=== PATIENT | male | born 1970 | race Caucasian/White ===

== ENCOUNTER 2016-09-08 17:07 | Inpatient (IN) | payer MEDICAID, OTHER ==
[~2016-09-08] VITALS: Ht 177.8 cm; Wt 66.7 kg
[~2016-09-08 17:07] MED LIST: ALBU8HFA4 IH; ARIP15TA3 PO; TRAZ150 PO
[2016-09-08] MEDS ORDERED: HALOPERIDOL 5 MG TABLET PO ONE (20:00)
[2016-09-08] MEDS ORDERED: DiphenhydrAMINE HCL 25 MG CAPSULE PO ONE (20:00)
[2016-09-08] MEDS ORDERED: LORazepam 2 MG TABLET PO ONE (20:00)
[2016-09-08] MEDS ORDERED: ZOLPIDEM TARTRATE 10 MG TABLET PO PRN (21:15)
[2016-09-08] MEDS ORDERED: HALOPERIDOL 5 MG TABLET PO PRN (21:15)
[2016-09-08 21:36] VITALS: BP 122/68
[2016-09-08 22:04] VITALS: BP 113/67
[2016-09-09 00:16] VITALS: BP 110/68
[2016-09-09] MEDS: NICOTINE 21 MG/24 HOUR PATCH TD SCH (10:20)
[2016-09-09] MEDS: LORazepam 2 MG TABLET PO PRN (10:20)
[2016-09-09] MEDS ORDERED: DiphenhydrAMINE HCL 50 MG/ML VIAL IM ONE (14:45)
[2016-09-09] MEDS ORDERED: HALOPERIDOL LACTATE 5 MG/ML VIAL IM ONE (14:45)
[2016-09-09] MEDS ORDERED: LORazepam 2 MG/ML VIAL IM ONE (14:45)
[2016-09-09 16:00] VITALS: BP_SYST 107; BP_SYST 159; BP_DIAS 58; BP_DIAS 86
[2016-09-09] MEDS ORDERED: ARIPiprazole 15 MG TABLET PO SCH (21:00)
[2016-09-09] MEDS ORDERED: TraZODone HCL 150 MG TABLET PO SCH (21:00)
[2016-09-10] MEDS: LORazepam 2 MG TABLET PO PRN ×2 (06:33→10:32)
[2016-09-10 06:51] VITALS: BP 117/72
[2016-09-10] MEDS: NICOTINE 21 MG/24 HOUR PATCH TD SCH (08:53)
== END 2016-09-10 13:45 | disposition home or self-care (01) | DRG 750 ==
LOC: EMS 17:09 → B2S 20:30 → B3A 09-09 15:00
PROVIDERS: ADMIT Psychiatry & Neurology Psychiatry; ATTEND Psychiatry & Neurology Psychiatry
DX: F25.9 Schizoaffective disorder, unspecified (principal); R45.851 Suicidal ideations; Z91.14 Patient's other noncompliance with medication regimen; I10 Essential (primary) hypertension; F31.9 Bipolar disorder, unspecified; F41.9 Anxiety disorder, unspecified; J45.909 Unspecified asthma, uncomplicated; K21.9 Gastro-esophageal reflux disease without esophagitis; G89.29 Other chronic pain; M54.9 Dorsalgia, unspecified; F17.210 Nicotine dependence, cigarettes, uncomplicated; F14.90 Cocaine use, unspecified, uncomplicated; Z79.899 Other long term (current) drug therapy; Z98.890 Other specified postprocedural states; Z71.6 Tobacco abuse counseling
CPT/HCPCS: 99285; J1200; J1630; J2060

== ENCOUNTER 2016-11-13 17:17 | Inpatient (IN) | payer MEDICAID, OTHER ==
[~2016-11-13] VITALS: Ht 167.6 cm; Wt 67.2 kg
[~2016-11-13 17:17] MED LIST changes: -ALBU8HFA4 IH
[2016-11-13] MEDS ORDERED: SODIUM CHLORIDE 0.9% 1,000 ML IV ONE ×3 (18:00→21:30)
[2016-11-13] MEDS ORDERED: PANTOPRAZOLE SODIUM 40 MG/VIAL IVP ONE (18:00)
[2016-11-13] MEDS ORDERED: HYDROmorphone 2 MG/ML SYRINGE IVP ONE (18:00)
[2016-11-13] MEDS ORDERED: ONDANSETRON HCL 4 MG/2 ML VIAL IVP ONE (18:00)
[2016-11-13 18:11] LABS: BASOPHILS % (AUTO) 0.1 % (0.0-2.0); EOSINOPHILS % (AUTO) 0.1 % (1.0-6.0); HEMATOCRIT 38.1 % (41-53); HEMOGLOBIN 12.7 g/dL (13.5-17.5); LYMPHOCYTES # (AUTO) 2.4 K/uL (1.0-4.8); LYMPHOCYTES % (AUTO) 10.8 % (22.0-44.0); MEAN CORPUSCULAR HEMOGLOBIN 30.5 pg (26.0-34.0); MEAN CORPUSCULAR HGB CONC 33.5 G/dL (31.0-37.0); MEAN CORPUSCULAR VOLUME 91 fL (80-100); MONOCYTES # (AUTO) 1.7 K/uL (0.1-1.0); MONOCYTES % (AUTO) 7.5 % (2.0-9.0); NEUTROPHILS % (AUTO) 81.5 % (40.0-70.0); PLATELET COUNT (AUTO) 225 K/uL (150-450); RED BLOOD CELL COUNT(AUTO) 4.18 MIL/uL (4.50-5.90); RED CELL DISTRIBUTION WIDTH 15.4 % (11.5-14.5); WHITE BLOOD COUNT (AUTO) 22.1 K/uL (4.5-11.0)
[2016-11-13 18:13] LABS: ADD UA MICROSCOPIC NO; APPEARANCE,URINE CLEAR (CLEAR); GLUCOSE, URINE (UA) NEGATIVE (NEGATIVE); KETONES,URINE NEGATIVE (NEGATIVE); LEUKOCYTE ESTERASE ,URINE NEGATIVE (NEGATIVE); OCCULT BLOOD,URINE NEGATIVE (NEGATIVE); PH,URINE 5.5 (5.0-8.0); PROTEIN,URINE NEGATIVE (NEGATIVE)
[2016-11-13 18:22] LABS: ANION GAP 9 mmol/L (8-16); CALCIUM, TOTAL 8.2 mg/dL (8.8-10.5); CARBON DIOXIDE 27 mmol/L (22-29); CHLORIDE 101 mmol/L (98-107); CREATININE 0.92 mg/dL (0.60-1.30); GLOMERULAR FILTR. RATE CALC > 60 mL/min (>60); POTASSIUM 3.7 mmol/L (3.5-5.1); SODIUM SERUM 137 mmol/L (136-145); UREA NITROGEN, BLOOD 13 mg/dL (7-18)
[2016-11-13 18:27] LABS: ALANINE AMINOTRANSFERASE 9 U/L (12-78); ALBUMIN 3.3 g/dL (3.4-5.0); ASPARTATE AMINOTRANSFERASE 9 U/L (15-37); BILIRUBIN,TOTAL 0.4 mg/dL (0.1-1.0); TOTAL PROTEIN, SERUM 7.2 g/dL (6.4-8.2)
[2016-11-13 18:38] LABS: RBC MORPHOLOGY COMMENT NORMAL RBC MORPH
[2016-11-13] MEDS ORDERED: ALBUTEROL SULFATE 5 MG/ML 20 ML NEB SOLN [BULK] NEB ONE ×2 (19:45→21:15)
[2016-11-13] MEDS ORDERED: IPRATROPIUM BROMIDE 0.5 MG/2.5 ML NEB SOLUTION NEB ONE ×2 (19:45→21:00)
[2016-11-13] MEDS ORDERED: ONDANSETRON HCL 4 MG/2 ML VIAL IVP PRN (20:30)
[2016-11-13] MEDS ORDERED: ACETAMINOPHEN 325 MG TABLET PO PRN ×2 (20:30→21:30)
[2016-11-13] MEDS ORDERED: AZITHROMYCIN 500 MG/NS 250 ML IV ONE (20:30)
[2016-11-13] MEDS ORDERED: 0.9% SODIUM CHLORIDE 10 ML SYRINGE IVP PRN (20:30)
[2016-11-13] MEDS ORDERED: CefTRIAXone 1 GM/DEXTROSE 50 ML IV ONE (20:30)
[2016-11-13] MEDS ORDERED: ALBUTEROL SULFATE 2.5 MG/0.5 ML NEB SOLUTION NEB ONE (21:00)
[2016-11-13] MEDS ORDERED: MAGNESIUM HYDROXIDE SUSPENSION 30 ML UDCUP PO PRN (21:30)
[2016-11-13] MEDS ORDERED: ALBUTEROL SULFATE 2.5 MG/0.5 ML NEB SOLUTION NEB PRN (21:30)
[2016-11-13] MEDS ORDERED: ZOLPIDEM TARTRATE 5 MG TABLET PO PRN (21:30)
[2016-11-13] MEDS ORDERED: GuaiFENesin/CODEINE [SUGAR FREE] 200-20MG/10 ML SYRUP UDCUP PO PRN (21:45)
[2016-11-13] MEDS ORDERED: ARIPiprazole 15 MG TABLET PO SCH (22:00)
[2016-11-13 22:43] VITALS: BP 97/46
[2016-11-14 00:30] VITALS: BP 82/38
[2016-11-14 06:57] VITALS: BP 99/41
[2016-11-14 07:20] LABS: BASOPHILS % (AUTO) 0.3 % (0.0-2.0); EOSINOPHILS % (AUTO) 0.1 % (1.0-6.0); HEMATOCRIT 35.9 % (41-53); HEMOGLOBIN 12.1 g/dL (13.5-17.5); LYMPHOCYTES # (AUTO) 2.6 K/uL (1.0-4.8); LYMPHOCYTES % (AUTO) 12.9 % (22.0-44.0); MEAN CORPUSCULAR HEMOGLOBIN 30.7 pg (26.0-34.0); MEAN CORPUSCULAR HGB CONC 33.7 G/dL (31.0-37.0); MEAN CORPUSCULAR VOLUME 91 fL (80-100); MONOCYTES # (AUTO) 1.5 K/uL (0.1-1.0); MONOCYTES % (AUTO) 7.6 % (2.0-9.0); NEUTROPHILS # (AUTO) 15.8 K/uL (1.8-7.7); NEUTROPHILS % (AUTO) 79.1 % (40.0-70.0); PLATELET COUNT (AUTO) 185 K/uL (150-450); RED BLOOD CELL COUNT(AUTO) 3.95 MIL/uL (4.50-5.90)
[2016-11-14 07:38] VITALS: BP 94/55
[2016-11-14] MEDS ORDERED: DOCUSATE SODIUM 100 MG CAPSULE PO SCH (09:00)
[2016-11-14] MEDS ORDERED: PANTOPRAZOLE SODIUM 40 MG DR TABLET PO SCH (09:00)
[2016-11-14 11:06] VITALS: BP 118/59
[2016-11-14] MEDS ORDERED: CefTRIAXone 1 GM/DEXTROSE 50 ML IV SCH (20:00)
[2016-11-14] MEDS ORDERED: AZITHROMYCIN 500 MG/NS 250 ML IV SCH (21:00)
== END 2016-11-14 13:23 | disposition left against medical advice (07) | DRG 140 ==
LOC: EMS 17:19 → 6N 20:46
PROVIDERS: ADMIT Internal Medicine; ATTEND Internal Medicine
DX: J44.0 Chronic obstructive pulmonary disease with (acute) lower respiratory infection (principal); J18.9 Pneumonia, unspecified organism; I10 Essential (primary) hypertension; F29 Unspecified psychosis not due to a substance or known physiological condition; G89.29 Other chronic pain; M54.9 Dorsalgia, unspecified; F41.9 Anxiety disorder, unspecified; J45.909 Unspecified asthma, uncomplicated; F12.90 Cannabis use, unspecified, uncomplicated; F17.210 Nicotine dependence, cigarettes, uncomplicated; F19.10 Other psychoactive substance abuse, uncomplicated; F20.9 Schizophrenia, unspecified; F31.9 Bipolar disorder, unspecified; F60.9 Personality disorder, unspecified; K21.9 Gastro-esophageal reflux disease without esophagitis; Z82.49 Family history of ischemic heart disease and other diseases of the circulatory system; Z91.19 Patient's noncompliance with other medical treatment and regimen; Z71.6 Tobacco abuse counseling; J44.1 Chronic obstructive pulmonary disease with (acute) exacerbation
CPT/HCPCS: 74176; 87040; 87389; 93005; 94644; 96361; 96365; 96368; 96375; 99285; 99406; C9113; G0480; J0456; J0696; J1170; J2405; J7030

== ENCOUNTER 2018-05-17 04:06 | Emergency (ER) | payer OTHER ==
[~2018-05-17] VITALS: Ht 177.8 cm; Wt 63.6 kg
[~2018-05-17 04:06] MED LIST changes: +ARIP15TA2 PO; -ARIP15TA3 PO
[2018-05-17 04:18] VITALS: BP 164/70
[2018-05-17] MEDS: LIDOCAINE 1%/EPI 1:100,000 30 ML VIAL INJ ONE (05:03)
== END 2018-05-17 06:25 | disposition home or self-care (01) ==
LOC: EMS 04:07
DX: S01.81XA Laceration without foreign body of other part of head, initial encounter (principal); J45.909 Unspecified asthma, uncomplicated; F41.9 Anxiety disorder, unspecified; F31.9 Bipolar disorder, unspecified; K21.9 Gastro-esophageal reflux disease without esophagitis; I10 Essential (primary) hypertension; F20.9 Schizophrenia, unspecified; G89.29 Other chronic pain; F17.210 Nicotine dependence, cigarettes, uncomplicated; F14.90 Cocaine use, unspecified, uncomplicated; Y04.2XXA Assault by strike against or bumped into by another person, initial encounter; Y93.89 Activity, other specified; Y92.89 Other specified places as the place of occurrence of the external cause; Y99.8 Other external cause status
CPT/HCPCS: 12014; 70450; 99284; J3490

== ENCOUNTER 2018-07-05 13:30 | Inpatient (IN) | payer MEDICAID, OTHER ==
[~2018-07-05] VITALS: Ht 177.8 cm; Wt 64.7 kg
[~2018-07-05 13:30] MED LIST changes: +FLUP10 PO; +TRIH2TAB3 PO
[2018-07-05 14:47] LABS: BASOPHILS % (AUTO) 0.6 % (0.0-2.0); EOSINOPHILS % (AUTO) 0.4 % (1.0-6.0); HEMATOCRIT 38.2 % (41-53); HEMOGLOBIN 12.4 g/dL (13.5-17.5); LYMPHOCYTES % (AUTO) 16.1 % (22.0-44.0); MEAN CORPUSCULAR HEMOGLOBIN 28.9 pg (26.0-34.0); MEAN CORPUSCULAR HGB CONC 32.4 G/dL (31.0-37.0); MEAN CORPUSCULAR VOLUME 89 fL (80-100); MONOCYTES # (AUTO) 1.1 K/uL (0.1-1.0); MONOCYTES % (AUTO) 8.7 % (2.0-9.0); NEUTROPHILS # (AUTO) 9.4 K/uL (1.8-7.7); NEUTROPHILS % (AUTO) 74.2 % (40.0-70.0); PLATELET COUNT (AUTO) 253 K/uL (150-450); RED BLOOD CELL COUNT(AUTO) 4.29 MIL/uL (4.50-5.90)
[2018-07-05 14:56] LABS: ANION GAP 7 mmol/L (8-16); CALCIUM, TOTAL 8.4 mg/dL (8.8-10.5); CARBON DIOXIDE 32 mmol/L (22-29); CHLORIDE 102 mmol/L (98-107); CREATININE 0.78 mg/dL (0.60-1.30); GLOMERULAR FILTR. RATE CALC > 60 mL/min (>60); GLUCOSE,RANDOM 82 mg/dL (70-110); POTASSIUM 4.1 mmol/L (3.5-5.1); SODIUM SERUM 141 mmol/L (136-145); UREA NITROGEN, BLOOD 12 mg/dL (7-18)
[2018-07-05 15:05] LABS: ALANINE AMINOTRANSFERASE 15 U/L (12-78); ALBUMIN 3.1 g/dL (3.4-5.0); ALKALINE PHOSPHATASE 73 U/L (46-116); ASPARTATE AMINOTRANSFERASE 16 U/L (15-37); BILIRUBIN,TOTAL 0.2 mg/dL (0.1-1.0); TOTAL PROTEIN, SERUM 7.2 g/dL (6.4-8.2)
[2018-07-05] MEDS ORDERED: ZOLPIDEM TARTRATE 10 MG TABLET PO PRN (15:30)
[2018-07-05 15:41] LABS: AMPHET/METH SCREEN,URINE NEGATIVE (NEGATIVE); BARBITURATE SCREEN, URINE NEGATIVE (NEGATIVE); BENZODIAZEPINES SCREEN,URINE NEGATIVE (NEGATIVE); CANNABINOID SCREEN,URINE NEGATIVE (NEGATIVE); COCAINE SCREEN,URINE NEGATIVE (NEGATIVE); METHADONE SCREEN, URINE NEGATIVE (NEGATIVE); OPIATE SCREEN,URINE NEGATIVE (NEGATIVE)
[2018-07-05 15:44] LABS: PHENCYCLIDINE SCREEN,URINE NEGATIVE (NEGATIVE)
[2018-07-05 18:33] VITALS: BP 111/61
[2018-07-05 18:50] VITALS: BP 111/61
[2018-07-05] MEDS ORDERED: GuaiFENesin/D-METHORPHAN [SUGAR-FREE] 200-20MG/10 ML SYRUP UDCUP PO PRN (19:15)
[2018-07-05] MEDS ORDERED: DOCUSATE SODIUM 100 MG CAPSULE PO PRN (19:15)
[2018-07-05] MEDS ORDERED: MAG HYDROX/AL HYDROX/SIMETH ES 30 ML SUSPENSION UDCUP PO PRN (19:15)
[2018-07-05] MEDS ORDERED: MAGNESIUM HYDROXIDE SUSPENSION 30 ML UDCUP PO PRN (19:15)
[2018-07-05] MEDS ORDERED: PETROLATUM,WHITE 71 GM JELLY TP PRN (19:15)
[2018-07-05] MEDS ORDERED: ALBUTEROL SULFATE HFA 90 MCG/PUFF 8 GM INHALER IH PRN (19:15)
[2018-07-05] MEDS ORDERED: LOPERAMIDE HCL 2 MG CAPSULE PO PRN (19:15)
[2018-07-05] MEDS ORDERED: ONDANSETRON HCL 4 MG TABLET PO PRN (19:15)
[2018-07-05] MEDS ORDERED: CloNIDine HCL 0.1 MG TABLET PO PRN (19:15)
[2018-07-05] MEDS ORDERED: NICOTINE 14 MG/24 HOUR PATCH TD PRN (19:15)
[2018-07-05] MEDS ORDERED: IBUPROFEN 400 MG TABLET PO PRN (19:15)
[2018-07-05] MEDS ORDERED: ACETAMINOPHEN 325 MG TABLET PO PRN (19:15)
[2018-07-06 09:00] VITALS: BP 125/77
[2018-07-06] MEDS: LORazepam 2 MG TABLET PO PRN ×2 (09:14→14:08)
[2018-07-06] MEDS: HALOPERIDOL 5 MG TABLET PO PRN ×2 (09:14→14:14)
[2018-07-06] MEDS: ARIPiprazole 15 MG TABLET PO SCH (16:23)
[2018-07-06] MEDS: TRIHEXYPHENIDYL HCL 2 MG TABLET PO SCH (16:23)
[2018-07-06] MEDS: FluPHENAZine HCL 5 MG TABLET PO SCH (16:23)
[2018-07-06 19:20] VITALS: BP 117/73
[2018-07-06] MEDS ORDERED: TraZODone HCL 150 MG TABLET PO SCH (21:00)
[2018-07-07 07:19] LABS: CHOL/HDL RATIO 2.6 (4.2-7.3); FREE T4 (FREE THYROXINE) 0.7 ng/dL (0.76-1.46); THYROID STIMULATING HORMONE 1.79 uIU/mL (0.36-3.74)
[2018-07-07 08:05] VITALS: BP 130/86
[2018-07-07] MEDS: TRIHEXYPHENIDYL HCL 2 MG TABLET PO SCH ×2 (09:19→16:17)
[2018-07-07] MEDS: ARIPiprazole 15 MG TABLET PO SCH ×2 (09:19→16:17)
[2018-07-07] MEDS: FluPHENAZine HCL 5 MG TABLET PO SCH ×2 (09:20→16:17)
[2018-07-07] MEDS: LORazepam 2 MG TABLET PO PRN (09:20)
[2018-07-07] MEDS ORDERED: ARIP15TA2 PO (16:02)
[2018-07-07] MEDS ORDERED: TRIH2TAB3 PO (16:02)
[2018-07-07] MEDS ORDERED: TRAZ150 PO (16:03)
== END 2018-07-07 17:45 | disposition home or self-care (01) | DRG 750 ==
LOC: EMS 13:33 → 3EI 18:13
PROVIDERS: ADMIT Psychiatry & Neurology Child & Adolescent Psychiatry; ATTEND Psychiatry & Neurology Child & Adolescent Psychiatry
DX: F20.0 Paranoid schizophrenia (principal); F15.20 Other stimulant dependence, uncomplicated; F14.90 Cocaine use, unspecified, uncomplicated; F17.200 Nicotine dependence, unspecified, uncomplicated; D64.9 Anemia, unspecified; D72.829 Elevated white blood cell count, unspecified; G89.29 Other chronic pain; I10 Essential (primary) hypertension; J44.9 Chronic obstructive pulmonary disease, unspecified; K21.9 Gastro-esophageal reflux disease without esophagitis; F41.9 Anxiety disorder, unspecified; M54.9 Dorsalgia, unspecified; F19.10 Other psychoactive substance abuse, uncomplicated; Z71.89 Other specified counseling; Z71.6 Tobacco abuse counseling
CPT/HCPCS: 83036; 84439; 84443; G0480

== ENCOUNTER 2019-01-12 11:54 | Inpatient (IN) | payer MEDICAID, OTHER ==
[~2019-01-12] VITALS: Ht 177.8 cm; Wt 63.4 kg
[2019-01-12] MEDS ORDERED: FluPHENAZine HCL 5 MG TABLET PO ONE (13:30)
[2019-01-12] MEDS ORDERED: LORazepam 2 MG TABLET PO ONE (13:30)
[2019-01-12 13:43] LABS: AMPHET/METH SCREEN,URINE POSITIVE (NEGATIVE); BARBITURATE SCREEN, URINE NEGATIVE (NEGATIVE); BENZODIAZEPINES SCREEN,URINE NEGATIVE (NEGATIVE); CANNABINOID SCREEN,URINE NEGATIVE (NEGATIVE); COCAINE SCREEN,URINE NEGATIVE (NEGATIVE); METHADONE SCREEN, URINE NEGATIVE (NEGATIVE); OPIATE SCREEN,URINE NEGATIVE (NEGATIVE); PHENCYCLIDINE SCREEN,URINE NEGATIVE (NEGATIVE)
[2019-01-12 13:54] LABS: BASOPHILS % (AUTO) 0.4 % (0.0-2.0); EOSINOPHILS % (AUTO) 0.4 % (1.0-6.0); HEMATOCRIT 39.8 % (41-53); HEMOGLOBIN 12.9 g/dL (13.5-17.5); LYMPHOCYTES # (AUTO) 2.7 K/uL (1.0-4.8); LYMPHOCYTES % (AUTO) 22.3 % (22.0-44.0); MEAN CORPUSCULAR HEMOGLOBIN 30.6 pg (26.0-34.0); MEAN CORPUSCULAR HGB CONC 32.5 G/dL (31.0-37.0); MEAN CORPUSCULAR VOLUME 94 fL (80-100); MONOCYTES % (AUTO) 8.1 % (2.0-9.0); NEUTROPHILS # (AUTO) 8.3 K/uL (1.8-7.7); NEUTROPHILS % (AUTO) 68.8 % (40.0-70.0); PLATELET COUNT (AUTO) 230 K/uL (150-450); RED BLOOD CELL COUNT(AUTO) 4.23 MIL/uL (4.50-5.90); RED CELL DISTRIBUTION WIDTH 14.6 % (11.5-14.5)
[2019-01-12 14:10] LABS: ANION GAP 4 mmol/L (8-16); CALCIUM, TOTAL 8.9 mg/dL (8.8-10.5); CARBON DIOXIDE 33 mmol/L (22-29); CHLORIDE 101 mmol/L (98-107); CREATININE 0.98 mg/dL (0.60-1.30); GLOMERULAR FILTR. RATE CALC > 60 mL/min (>60); GLUCOSE,RANDOM 104 mg/dL (70-110); POTASSIUM 4.3 mmol/L (3.5-5.1); SODIUM SERUM 138 mmol/L (136-145); UREA NITROGEN, BLOOD 10 mg/dL (7-18)
[2019-01-12] MEDS ORDERED: HALOPERIDOL 5 MG TABLET PO PRN (14:15)
[2019-01-12] MEDS ORDERED: LORazepam 2 MG TABLET PO PRN (14:15)
[2019-01-12] MEDS ORDERED: ZOLPIDEM TARTRATE 10 MG TABLET PO PRN (14:15)
[2019-01-12 14:16] LABS: ALANINE AMINOTRANSFERASE 8 U/L (12-78); ALBUMIN 3.6 g/dL (3.4-5.0); ALKALINE PHOSPHATASE 76 U/L (46-116); ASPARTATE AMINOTRANSFERASE 14 U/L (15-37); BILIRUBIN,TOTAL 0.2 mg/dL (0.1-1.0); TOTAL PROTEIN, SERUM 7.2 g/dL (6.4-8.2)
[2019-01-12 14:40] VITALS: BP 100/77
[2019-01-12 16:26] VITALS: BP 104/66
[2019-01-12] MEDS: FluPHENAZine HCL 5 MG TABLET PO SCH (16:58)
[2019-01-12] MEDS: TRIHEXYPHENIDYL HCL 2 MG TABLET PO SCH (16:58)
[2019-01-12] MEDS: ARIPiprazole 15 MG TABLET PO SCH (16:58)
[2019-01-12] MEDS: TraZODone HCL 150 MG TABLET PO SCH (20:37)
[2019-01-13 09:00] VITALS: BP 120/78
[2019-01-13] MEDS: ARIPiprazole 15 MG TABLET PO SCH ×2 (09:21→16:30)
[2019-01-13] MEDS: FluPHENAZine HCL 5 MG TABLET PO SCH ×2 (09:21→16:30)
[2019-01-13] MEDS: TRIHEXYPHENIDYL HCL 2 MG TABLET PO SCH ×2 (09:21→16:30)
[2019-01-13] MEDS ORDERED: DOCUSATE SODIUM 100 MG CAPSULE PO PRN (11:00)
[2019-01-13] MEDS ORDERED: CloNIDine HCL 0.1 MG TABLET PO PRN (11:00)
[2019-01-13] MEDS ORDERED: NICOTINE 14 MG/24 HOUR PATCH TD PRN (11:00)
[2019-01-13] MEDS ORDERED: MAG HYDROX/AL HYDROX/SIMETH ES 30 ML SUSPENSION UDCUP PO PRN (11:00)
[2019-01-13] MEDS ORDERED: ALBUTEROL SULFATE HFA 90 MCG/PUFF 8 GM INHALER IH PRN (11:00)
[2019-01-13] MEDS ORDERED: MAGNESIUM HYDROXIDE SUSPENSION 30 ML UDCUP PO PRN (11:00)
[2019-01-13] MEDS ORDERED: PETROLATUM,WHITE 28 GM JELLY TP PRN (11:00)
[2019-01-13] MEDS ORDERED: LOPERAMIDE HCL 2 MG CAPSULE PO PRN (11:00)
[2019-01-13] MEDS ORDERED: IBUPROFEN 400 MG TABLET PO PRN (11:00)
[2019-01-13] MEDS ORDERED: GuaiFENesin/D-METHORPHAN [SUGAR-FREE] 200-20MG/10 ML SYRUP UDCUP PO PRN (11:00)
[2019-01-13] MEDS ORDERED: ONDANSETRON HCL 4 MG TABLET PO PRN (11:00)
[2019-01-13] MEDS ORDERED: ACETAMINOPHEN 325 MG TABLET PO PRN (11:00)
[2019-01-13 17:08] VITALS: BP 102/62
[2019-01-13] MEDS: TraZODone HCL 150 MG TABLET PO SCH (20:07)
[2019-01-14 07:16] LABS: BASOPHILS % (AUTO) 0.6 % (0.0-2.0); HEMATOCRIT 41.4 % (41-53); HEMOGLOBIN 13.6 g/dL (13.5-17.5); LYMPHOCYTES # (AUTO) 2.3 K/uL (1.0-4.8); LYMPHOCYTES % (AUTO) 32.5 % (22.0-44.0); MEAN CORPUSCULAR HEMOGLOBIN 30.6 pg (26.0-34.0); MEAN CORPUSCULAR HGB CONC 32.8 G/dL (31.0-37.0); MEAN CORPUSCULAR VOLUME 93 fL (80-100); MONOCYTES # (AUTO) 0.6 K/uL (0.1-1.0); MONOCYTES % (AUTO) 9.1 % (2.0-9.0); NEUTROPHILS % (AUTO) 56.8 % (40.0-70.0); PLATELET COUNT (AUTO) 222 K/uL (150-450); RED BLOOD CELL COUNT(AUTO) 4.44 MIL/uL (4.50-5.90); RED CELL DISTRIBUTION WIDTH 14.4 % (11.5-14.5)
[2019-01-14 07:29] LABS: HEMOGLOBIN A1C 5.7 % (4.5-6.2)
[2019-01-14 07:58] LABS: CHOL/HDL RATIO 3.2 (4.2-7.3)
[2019-01-14 08:00] VITALS: BP 122/73
[2019-01-14] MEDS: ARIPiprazole 15 MG TABLET PO SCH (08:58)
[2019-01-14] MEDS: FluPHENAZine HCL 5 MG TABLET PO SCH (08:58)
[2019-01-14] MEDS: TRIHEXYPHENIDYL HCL 2 MG TABLET PO SCH (08:58)
== END 2019-01-14 16:30 | disposition left against medical advice (07) | DRG 750 ==
LOC: EMS 11:57 → 3EI 14:24
PROVIDERS: ADMIT Psychiatry & Neurology Psychiatry; ATTEND Psychiatry & Neurology Psychiatry
DX: F25.9 Schizoaffective disorder, unspecified (principal); R45.851 Suicidal ideations; Z59.0 Homelessness; D64.9 Anemia, unspecified; D72.829 Elevated white blood cell count, unspecified; F14.90 Cocaine use, unspecified, uncomplicated; F17.200 Nicotine dependence, unspecified, uncomplicated; G89.29 Other chronic pain; I10 Essential (primary) hypertension; J44.9 Chronic obstructive pulmonary disease, unspecified; M54.9 Dorsalgia, unspecified; F19.10 Other psychoactive substance abuse, uncomplicated; K21.9 Gastro-esophageal reflux disease without esophagitis; Z79.899 Other long term (current) drug therapy; Z71.6 Tobacco abuse counseling; Z71.51 Drug abuse counseling and surveillance of drug abuser
CPT/HCPCS: 83036; G0480

== ENCOUNTER 2020-07-30 10:45 | Inpatient (IN) | payer MEDICAID, OTHER ==
[~2020-07-30] VITALS: Ht 177.8 cm; Wt 70.9 kg
[~2020-07-30 10:45] MED LIST changes: -FLUP10 PO; +FLUP10TA13 PO
[2020-07-30 11:27] LABS: COVID AG,FIA SOURCE NASOPHARYNGEAL
[2020-07-30 11:44] LABS: BASOPHILS % (AUTO) 0.4 % (0.0-2.0); EOSINOPHILS % (AUTO) 0.8 % (1.0-6.0); HEMATOCRIT 45.5 % (41-53); HEMOGLOBIN 14.9 g/dL (13.5-17.5); LYMPHOCYTES # (AUTO) 2.5 K/uL (1.0-4.8); LYMPHOCYTES % (AUTO) 20.8 % (22.0-44.0); MEAN CORPUSCULAR HEMOGLOBIN 30.1 pg (26.0-34.0); MEAN CORPUSCULAR HGB CONC 32.8 G/dL (31.0-37.0); MEAN CORPUSCULAR VOLUME 92 fL (80-100); NEUTROPHILS # (AUTO) 8.4 K/uL (1.8-7.7); PLATELET COUNT (AUTO) 247 K/uL (150-450); RED BLOOD CELL COUNT(AUTO) 4.96 MIL/uL (4.50-5.90)
[2020-07-30 11:54] LABS: ANION GAP 5 mmol/L (8-16); CALCIUM, TOTAL 8.6 mg/dL (8.8-10.5); CARBON DIOXIDE 31 mmol/L (22-29); CHLORIDE 105 mmol/L (98-107); CREATININE 0.84 mg/dL (0.60-1.30); GLOMERULAR FILTR. RATE CALC > 60 mL/min (>60); GLUCOSE,RANDOM 96 mg/dL (70-110); POTASSIUM 4.8 mmol/L (3.5-5.1); SODIUM SERUM 141 mmol/L (136-145); UREA NITROGEN, BLOOD 13 mg/dL (7-18)
[2020-07-30 11:59] LABS: ALANINE AMINOTRANSFERASE 16 U/L (12-78); ALBUMIN 3.7 g/dL (3.4-5.0); ALKALINE PHOSPHATASE 75 U/L (46-116); ASPARTATE AMINOTRANSFERASE 15 U/L (15-37); BILIRUBIN,TOTAL 0.2 mg/dL (0.1-1.0); TOTAL PROTEIN, SERUM 8.2 g/dL (6.4-8.2)
[2020-07-30 12:02] LABS: AMPHET/METH SCREEN,URINE NEGATIVE (NEGATIVE); BARBITURATE SCREEN, URINE NEGATIVE (NEGATIVE); BENZODIAZEPINES SCREEN,URINE NEGATIVE (NEGATIVE); CANNABINOID SCREEN,URINE NEGATIVE (NEGATIVE); COCAINE SCREEN,URINE NEGATIVE (NEGATIVE); METHADONE SCREEN, URINE NEGATIVE (NEGATIVE); OPIATE SCREEN,URINE NEGATIVE (NEGATIVE)
[2020-07-30 12:03] LABS: PHENCYCLIDINE SCREEN,URINE NEGATIVE (NEGATIVE)
[2020-07-30] MEDS ORDERED: ZOLPIDEM TARTRATE 10 MG TABLET PO PRN (12:15)
[2020-07-30] MEDS ORDERED: HALOPERIDOL 5 MG TABLET PO PRN (12:15)
[2020-07-30 13:05] VITALS: BP 123/75
[2020-07-30] MEDS ORDERED: PNEUMOCOCCAL VACCINE POLYVALENT 0.5 ML VIAL [PPSV23] IM ONE (14:00)
[2020-07-30 16:33] VITALS: BP 96/62
[2020-07-31 07:08] VITALS: BP 120/75
[2020-07-31 07:10] LABS: CHOL/HDL RATIO 3.8 (4.2-7.3)
[2020-07-31] MEDS ORDERED: PETROLATUM,WHITE 28 GM JELLY TP PRN (08:15)
[2020-07-31] MEDS ORDERED: IBUPROFEN 400 MG TABLET PO PRN (08:15)
[2020-07-31] MEDS ORDERED: DOCUSATE SODIUM 100 MG CAPSULE PO PRN (08:15)
[2020-07-31] MEDS ORDERED: MAG HYDROX/AL HYDROX/SIMETH ES 30 ML SUSPENSION UDCUP PO PRN (08:15)
[2020-07-31] MEDS ORDERED: MAGNESIUM HYDROXIDE SUSPENSION 30 ML UDCUP PO PRN (08:15)
[2020-07-31] MEDS ORDERED: CloNIDine HCL 0.1 MG TABLET PO PRN (08:15)
[2020-07-31] MEDS ORDERED: GuaiFENesin/D-METHORPHAN [SUGAR-FREE] 200-20MG/10 ML SYRUP UDCUP PO PRN (08:15)
[2020-07-31] MEDS ORDERED: NICOTINE 14 MG/24 HOUR PATCH TD PRN (08:15)
[2020-07-31] MEDS ORDERED: ALBUTEROL SULFATE HFA 90 MCG/PUFF 8 GM INHALER IH PRN (08:15)
[2020-07-31] MEDS ORDERED: LOPERAMIDE HCL 2 MG CAPSULE PO PRN (08:15)
[2020-07-31] MEDS ORDERED: ACETAMINOPHEN 325 MG TABLET PO PRN (08:15)
[2020-07-31] MEDS ORDERED: ONDANSETRON HCL 4 MG TABLET PO PRN (08:15)
[2020-07-31 10:20] VITALS: BP 100/57
[2020-07-31 16:00] VITALS: BP 107/63
[2020-07-31] MEDS: FluPHENAZine HCL 5 MG TABLET PO SCH (16:48)
[2020-07-31] MEDS: ARIPiprazole 15 MG TABLET PO SCH (16:48)
[2020-07-31] MEDS: TRIHEXYPHENIDYL HCL 2 MG TABLET PO SCH (16:48)
[2020-07-31] MEDS: TraZODone HCL 150 MG TABLET PO SCH (20:17)
[2020-08-01 06:23] VITALS: BP 105/68
[2020-08-01] MEDS: ARIPiprazole 15 MG TABLET PO SCH ×2 (08:16→16:24)
[2020-08-01] MEDS: FluPHENAZine HCL 5 MG TABLET PO SCH ×2 (08:16→16:24)
[2020-08-01] MEDS: TRIHEXYPHENIDYL HCL 2 MG TABLET PO SCH ×2 (08:16→16:24)
[2020-08-01 09:21] VITALS: BP 126/65
[2020-08-01] MEDS: LORazepam 2 MG TABLET PO PRN (14:32)
[2020-08-01 17:56] VITALS: BP 93/58
[2020-08-01] MEDS: TraZODone HCL 150 MG TABLET PO SCH (20:09)
[2020-08-02] MEDS: TRIHEXYPHENIDYL HCL 2 MG TABLET PO SCH (08:02)
[2020-08-02] MEDS: ARIPiprazole 15 MG TABLET PO SCH (08:03)
[2020-08-02] MEDS: FluPHENAZine HCL 5 MG TABLET PO SCH (08:03)
[2020-08-02] MEDS: LORazepam 2 MG TABLET PO PRN (08:03)
[2020-08-02 09:24] VITALS: BP 119/79
[2020-08-04] MEDS ORDERED: FLUP5TAB15 PO (13:09)
== END 2020-08-02 12:00 | disposition home or self-care (01) | DRG 750 ==
LOC: EMS 11:59 → 3EI 13:10
PROVIDERS: ADMIT Psychiatry & Neurology Child & Adolescent Psychiatry; ATTEND Psychiatry & Neurology Child & Adolescent Psychiatry
DX: F25.1 Schizoaffective disorder, depressive type (principal); F17.210 Nicotine dependence, cigarettes, uncomplicated; F41.9 Anxiety disorder, unspecified; G89.29 Other chronic pain; I10 Essential (primary) hypertension; F14.10 Cocaine abuse, uncomplicated; Z20.822 Contact with and (suspected) exposure to COVID-19; J44.9 Chronic obstructive pulmonary disease, unspecified; K21.9 Gastro-esophageal reflux disease without esophagitis; R45.851 Suicidal ideations; M54.9 Dorsalgia, unspecified; Z28.21 Immunization not carried out because of patient refusal; Z79.899 Other long term (current) drug therapy; Z71.51 Drug abuse counseling and surveillance of drug abuser
CPT/HCPCS: 87426; 99285; G0480

== ENCOUNTER 2020-09-14 09:36 | Emergency (ER) | payer MEDICAID, OTHER ==
[~2020-09-14] VITALS: Ht 177.8 cm; Wt 70.0 kg
[~2020-09-14 09:36] MED LIST changes: -ARIP15TA2 PO; +ARIP15TA27 PO; -FLUP10TA13 PO; +FLUP5TAB15 PO
[2020-09-14 09:38] VITALS: BP 117/74
[2020-09-14] MEDS ORDERED: BACITRACIN 0.9 GM PACKET OINTMENT TP ONE (10:00)
== END 2020-09-14 10:20 | disposition home or self-care (01) ==
LOC: EMS 09:41
DX: T24.212A Burn of second degree of left thigh, initial encounter (principal); T23.221A Burn of second degree of single right finger (nail) except thumb, initial encounter; F14.90 Cocaine use, unspecified, uncomplicated; F15.90 Other stimulant use, unspecified, uncomplicated; J45.909 Unspecified asthma, uncomplicated; X08.8XXA Exposure to other specified smoke, fire and flames, initial encounter; Y93.89 Activity, other specified; Y92.89 Other specified places as the place of occurrence of the external cause; Y99.8 Other external cause status; F17.210 Nicotine dependence, cigarettes, uncomplicated
CPT/HCPCS: 16020; 99282; 99283

== ENCOUNTER 2020-10-07 14:29 | Inpatient (IN) | payer MEDICAID, OTHER ==
[~2020-10-07] VITALS: Ht 177.8 cm; Wt 67.6 kg
[2020-10-07 16:43] LABS: BASOPHILS % (AUTO) 0.2 % (0.0-2.0); EOSINOPHILS % (AUTO) 0.5 % (1.0-6.0); HEMOGLOBIN 14.4 g/dL (13.5-17.5); LYMPHOCYTES # (AUTO) 2.9 K/uL (1.0-4.8); LYMPHOCYTES % (AUTO) 17.3 % (22.0-44.0); MEAN CORPUSCULAR HEMOGLOBIN 29.4 pg (26.0-34.0); MEAN CORPUSCULAR HGB CONC 32.6 G/dL (31.0-37.0); MEAN CORPUSCULAR VOLUME 90 fL (80-100); MONOCYTES # (AUTO) 1.2 K/uL (0.1-1.0); NEUTROPHILS # (AUTO) 12.7 K/uL (1.8-7.7); PLATELET COUNT (AUTO) 284 K/uL (150-450); RED BLOOD CELL COUNT(AUTO) 4.89 MIL/uL (4.50-5.90); RED CELL DISTRIBUTION WIDTH 14.8 % (11.5-14.5)
[2020-10-07] MEDS ORDERED: HALOPERIDOL 5 MG TABLET PO PRN (16:45)
[2020-10-07] MEDS ORDERED: ZOLPIDEM TARTRATE 10 MG TABLET PO PRN (16:45)
[2020-10-07 17:03] LABS: COVID AG,FIA SOURCE NASAL SWAB
[2020-10-07 17:04] LABS: ANION GAP 9 mmol/L (8-16); CALCIUM, TOTAL 8.8 mg/dL (8.8-10.5); CARBON DIOXIDE 28 mmol/L (22-29); CHLORIDE 100 mmol/L (98-107); CREATININE 0.91 mg/dL (0.60-1.30); GLOMERULAR FILTR. RATE CALC > 60 mL/min (>60); GLUCOSE,RANDOM 129 mg/dL (70-110); POTASSIUM 3.9 mmol/L (3.5-5.1); SODIUM SERUM 137 mmol/L (136-145); UREA NITROGEN, BLOOD 12 mg/dL (7-18)
[2020-10-07 17:12] LABS: ALANINE AMINOTRANSFERASE 14 U/L (12-78); ALBUMIN 3.7 g/dL (3.4-5.0); ALKALINE PHOSPHATASE 70 U/L (46-116); ASPARTATE AMINOTRANSFERASE 13 U/L (15-37); BILIRUBIN,TOTAL 0.2 mg/dL (0.1-1.0); TOTAL PROTEIN, SERUM 7.9 g/dL (6.4-8.2)
[2020-10-07 18:56] VITALS: BP 129/73
[2020-10-07] MEDS ORDERED: PNEUMOCOCCAL VACCINE POLYVALENT 0.5 ML VIAL [PPSV23] IM. ONE (19:15)
[2020-10-08] MEDS: LORazepam 2 MG TABLET PO PRN (07:53)
[2020-10-08] MEDS: FluPHENAZine HCL 5 MG TABLET PO SCH ×2 (07:54→17:26)
[2020-10-08] MEDS: TRIHEXYPHENIDYL HCL 2 MG TABLET PO SCH ×2 (07:54→17:26)
[2020-10-08] MEDS: ARIPiprazole 5 MG TABLET PO SCH ×2 (07:54→17:26)
[2020-10-08] MEDS ORDERED: DOCUSATE SODIUM 100 MG CAPSULE PO PRN (08:00)
[2020-10-08] MEDS ORDERED: MAGNESIUM HYDROXIDE SUSPENSION 30 ML UDCUP PO PRN (08:00)
[2020-10-08] MEDS ORDERED: NICOTINE 14 MG/24 HOUR PATCH TD PRN (08:00)
[2020-10-08] MEDS ORDERED: ONDANSETRON HCL 4 MG TABLET PO PRN (08:00)
[2020-10-08] MEDS ORDERED: PETROLATUM,WHITE 28 GM JELLY TP PRN (08:00)
[2020-10-08] MEDS ORDERED: LOPERAMIDE HCL 2 MG CAPSULE PO PRN (08:00)
[2020-10-08] MEDS ORDERED: IBUPROFEN 400 MG TABLET PO PRN (08:00)
[2020-10-08] MEDS ORDERED: MAG HYDROX/AL HYDROX/SIMETH ES 30 ML SUSPENSION UDCUP PO PRN (08:00)
[2020-10-08] MEDS ORDERED: ACETAMINOPHEN 325 MG TABLET PO PRN (08:00)
[2020-10-08] MEDS ORDERED: CloNIDine HCL 0.1 MG TABLET PO PRN (08:00)
[2020-10-08] MEDS ORDERED: ALBUTEROL SULFATE HFA 90 MCG/PUFF 8 GM INHALER IH PRN (08:00)
[2020-10-08 08:30] VITALS: BP 123/78
[2020-10-08] MEDS ORDERED: LORazepam 2 MG/ML VIAL IM ONE (09:15)
[2020-10-08] MEDS ORDERED: HALOPERIDOL LACTATE 5 MG/ML VIAL IM ONE (09:15)
[2020-10-08] MEDS ORDERED: DiphenhydrAMINE HCL 50 MG/ML VIAL IM ONE (09:15)
[2020-10-08 16:00] VITALS: BP 107/63
[2020-10-08] MEDS: TraZODone HCL 150 MG TABLET PO SCH (21:24)
[2020-10-08] MEDS: GuaiFENesin/D-METHORPHAN [SUGAR-FREE] 200-20MG/10 ML SYRUP UDCUP PO PRN (22:25)
[2020-10-09 08:09] VITALS: BP 134/85
[2020-10-09] MEDS: FluPHENAZine HCL 5 MG TABLET PO SCH ×2 (08:36→16:25)
[2020-10-09] MEDS: TRIHEXYPHENIDYL HCL 2 MG TABLET PO SCH ×2 (08:36→16:25)
[2020-10-09] MEDS: ARIPiprazole 5 MG TABLET PO SCH ×2 (08:37→16:25)
[2020-10-09] MEDS: LORazepam 2 MG TABLET PO PRN ×2 (08:39→23:33)
[2020-10-09 16:19] VITALS: BP 110/6
[2020-10-09] MEDS: TraZODone HCL 150 MG TABLET PO SCH (20:30)
[2020-10-09] MEDS: GuaiFENesin/D-METHORPHAN [SUGAR-FREE] 200-20MG/10 ML SYRUP UDCUP PO PRN (21:59)
[2020-10-10] MEDS: GuaiFENesin/D-METHORPHAN [SUGAR-FREE] 200-20MG/10 ML SYRUP UDCUP PO PRN (06:39)
[2020-10-10 08:00] VITALS: BP 111/72
[2020-10-10] MEDS: ARIPiprazole 5 MG TABLET PO SCH ×2 (08:23→16:16)
[2020-10-10] MEDS: FluPHENAZine HCL 5 MG TABLET PO SCH ×2 (08:24→16:16)
[2020-10-10] MEDS: LORazepam 2 MG TABLET PO PRN (08:24)
[2020-10-10] MEDS: TRIHEXYPHENIDYL HCL 2 MG TABLET PO SCH ×2 (08:24→16:16)
[2020-10-10 08:43] LABS: BASOPHILS % (AUTO) 0.4 % (0.0-2.0); EOSINOPHILS % (AUTO) 1.2 % (1.0-6.0); HEMOGLOBIN 14.4 g/dL (13.5-17.5); LYMPHOCYTES # (AUTO) 2.2 K/uL (1.0-4.8); MEAN CORPUSCULAR HEMOGLOBIN 29.4 pg (26.0-34.0); MEAN CORPUSCULAR HGB CONC 32.7 G/dL (31.0-37.0); MEAN CORPUSCULAR VOLUME 90 fL (80-100); MONOCYTES # (AUTO) 0.7 K/uL (0.1-1.0); MONOCYTES % (AUTO) 10.7 % (2.0-9.0); NEUTROPHILS # (AUTO) 3.8 K/uL (1.8-7.7); NEUTROPHILS % (AUTO) 55.7 % (40.0-70.0); PLATELET COUNT (AUTO) 259 K/uL (150-450); RED BLOOD CELL COUNT(AUTO) 4.89 MIL/uL (4.50-5.90); RED CELL DISTRIBUTION WIDTH 14.5 % (11.5-14.5)
[2020-10-10 16:27] VITALS: BP 113/79
[2020-10-10] MEDS: TraZODone HCL 150 MG TABLET PO SCH (20:31)
[2020-10-11] MEDS: GuaiFENesin/D-METHORPHAN [SUGAR-FREE] 200-20MG/10 ML SYRUP UDCUP PO PRN (06:16)
[2020-10-11 07:32] LABS: BASOPHILS % (AUTO) 0.6 % (0.0-2.0); EOSINOPHILS % (AUTO) 2.1 % (1.0-6.0); HEMATOCRIT 46.2 % (41-53); HEMOGLOBIN 15.3 g/dL (13.5-17.5); LYMPHOCYTES # (AUTO) 2.8 K/uL (1.0-4.8); LYMPHOCYTES % (AUTO) 39.4 % (22.0-44.0); MEAN CORPUSCULAR HEMOGLOBIN 29.9 pg (26.0-34.0); MEAN CORPUSCULAR HGB CONC 33.2 G/dL (31.0-37.0); MEAN CORPUSCULAR VOLUME 90 fL (80-100); MONOCYTES # (AUTO) 0.8 K/uL (0.1-1.0); MONOCYTES % (AUTO) 11.4 % (2.0-9.0); NEUTROPHILS # (AUTO) 3.4 K/uL (1.8-7.7); NEUTROPHILS % (AUTO) 46.5 % (40.0-70.0); PLATELET COUNT (AUTO) 244 K/uL (150-450); RED BLOOD CELL COUNT(AUTO) 5.13 MIL/uL (4.50-5.90); RED CELL DISTRIBUTION WIDTH 14.6 % (11.5-14.5)
[2020-10-11] MEDS: TRIHEXYPHENIDYL HCL 2 MG TABLET PO SCH (07:48)
[2020-10-11] MEDS: FluPHENAZine HCL 5 MG TABLET PO SCH (07:48)
[2020-10-11] MEDS: LORazepam 2 MG TABLET PO PRN (07:48)
[2020-10-11] MEDS: ARIPiprazole 5 MG TABLET PO SCH (07:48)
[2020-10-11 08:33] VITALS: BP 114/77
== END 2020-10-11 13:05 | disposition home or self-care (01) | DRG 750 ==
LOC: EMS 14:34 → 3EI 16:36 → 3EC 10-08 09:33
PROVIDERS: ADMIT Psychiatry & Neurology Child & Adolescent Psychiatry; ATTEND Psychiatry & Neurology Child & Adolescent Psychiatry
DX: F25.9 Schizoaffective disorder, unspecified (principal); R45.851 Suicidal ideations; G89.29 Other chronic pain; I10 Essential (primary) hypertension; J44.9 Chronic obstructive pulmonary disease, unspecified; K21.9 Gastro-esophageal reflux disease without esophagitis; D72.829 Elevated white blood cell count, unspecified; F17.210 Nicotine dependence, cigarettes, uncomplicated; F14.90 Cocaine use, unspecified, uncomplicated; F41.9 Anxiety disorder, unspecified; M54.9 Dorsalgia, unspecified; R73.9 Hyperglycemia, unspecified; F32.9 Major depressive disorder, single episode, unspecified; Z23 Encounter for immunization; Z20.822 Contact with and (suspected) exposure to COVID-19; Z79.899 Other long term (current) drug therapy
CPT/HCPCS: 80053; 83036; 85025; 87426; 99285; G0480; J1200; J1630; J2060

== ENCOUNTER 2021-03-05 09:38 | Emergency (ER) | payer MEDICAID, OTHER ==
[~2021-03-05] VITALS: Ht 177.8 cm; Wt 72.7 kg
[~2021-03-05 09:38] MED LIST changes: -TRAZ150 PO; +TRAZ150T80 PO
[2021-03-05] MEDS ORDERED: LORazepam 2 MG TABLET PO ONE (10:00)
[2021-03-05] MEDS ORDERED: HALOPERIDOL 5 MG TABLET PO ONE (10:00)
[2021-03-05 10:01] LABS: BASOPHILS % (AUTO) 0.6 % (0.0-2.0); EOSINOPHILS % (AUTO) 0.5 % (1.0-6.0); HEMATOCRIT 44.9 % (41-53); HEMOGLOBIN 14.8 g/dL (13.5-17.5); LYMPHOCYTES # (AUTO) 3.2 K/uL (1.0-4.8); LYMPHOCYTES % (AUTO) 22.4 % (22.0-44.0); MEAN CORPUSCULAR HEMOGLOBIN 29.4 pg (26.0-34.0); MEAN CORPUSCULAR HGB CONC 32.9 G/dL (31.0-37.0); MEAN CORPUSCULAR VOLUME 89 fL (80-100); MONOCYTES # (AUTO) 1.2 K/uL (0.1-1.0); MONOCYTES % (AUTO) 8.4 % (2.0-9.0); NEUTROPHILS # (AUTO) 9.7 K/uL (1.8-7.7); NEUTROPHILS % (AUTO) 68.1 % (40.0-70.0); PLATELET COUNT (AUTO) 314 K/uL (150-450); RED BLOOD CELL COUNT(AUTO) 5.03 MIL/uL (4.50-5.90); RED CELL DISTRIBUTION WIDTH 15.3 % (11.5-14.5)
[2021-03-05 10:05] LABS: COVID AG,FIA SOURCE NASOPHARYNGEAL
[2021-03-05 10:11] LABS: ANION GAP 5 mmol/L (8-16); CALCIUM, TOTAL 9.3 mg/dL (8.8-10.5); CARBON DIOXIDE 32 mmol/L (22-29); CHLORIDE 103 mmol/L (98-107); CREATININE 0.84 mg/dL (0.60-1.30); GLOMERULAR FILTR. RATE CALC > 60 mL/min (>60); GLUCOSE,RANDOM 83 mg/dL (70-110); POTASSIUM 4.7 mmol/L (3.5-5.1); SODIUM SERUM 140 mmol/L (136-145); UREA NITROGEN, BLOOD 18 mg/dL (7-18)
[2021-03-05 10:16] LABS: ALANINE AMINOTRANSFERASE 33 U/L (12-78); ALBUMIN 3.9 g/dL (3.4-5.0); ALKALINE PHOSPHATASE 89 U/L (46-116); ASPARTATE AMINOTRANSFERASE 27 U/L (15-37); BILIRUBIN,TOTAL 0.3 mg/dL (0.1-1.0); TOTAL PROTEIN, SERUM 8.9 g/dL (6.4-8.2)
[2021-03-05 14:25] VITALS: BP 115/75
== END 2021-03-05 14:25 | disposition home or self-care (01) ==
LOC: EMS 09:42
DX: F32.9 Major depressive disorder, single episode, unspecified (principal); F20.9 Schizophrenia, unspecified; F41.9 Anxiety disorder, unspecified; J45.909 Unspecified asthma, uncomplicated; J44.9 Chronic obstructive pulmonary disease, unspecified; K21.9 Gastro-esophageal reflux disease without esophagitis; I10 Essential (primary) hypertension; F17.210 Nicotine dependence, cigarettes, uncomplicated; F14.90 Cocaine use, unspecified, uncomplicated; F19.90 Other psychoactive substance use, unspecified, uncomplicated; G89.29 Other chronic pain; Z20.822 Contact with and (suspected) exposure to COVID-19
CPT/HCPCS: 36415; 80053; 85025; 87426; 99284; G0480

== ENCOUNTER 2021-04-18 14:02 | Emergency (ER) | payer OTHER ==
[~2021-04-18] VITALS: Ht 177.8 cm; Wt 68.2 kg
[2021-04-18 14:46] VITALS: BP 119/70
[2021-04-18 15:57] LABS: BASOPHILS % (AUTO) 0.5 % (0.0-2.0); EOSINOPHILS % (AUTO) 1.3 % (1.0-6.0); HEMATOCRIT 45.5 % (41-53); HEMOGLOBIN 14.9 g/dL (13.5-17.5); LYMPHOCYTES # (AUTO) 3.2 K/uL (1.0-4.8); LYMPHOCYTES % (AUTO) 18.9 % (22.0-44.0); MEAN CORPUSCULAR HEMOGLOBIN 30.1 pg (26.0-34.0); MEAN CORPUSCULAR HGB CONC 32.8 G/dL (31.0-37.0); MEAN CORPUSCULAR VOLUME 92 fL (80-100); MONOCYTES # (AUTO) 1.4 K/uL (0.1-1.0); MONOCYTES % (AUTO) 8.4 % (2.0-9.0); NEUTROPHILS # (AUTO) 11.9 K/uL (1.8-7.7); NEUTROPHILS % (AUTO) 70.9 % (40.0-70.0); PLATELET COUNT (AUTO) 306 K/uL (150-450); RED BLOOD CELL COUNT(AUTO) 4.96 MIL/uL (4.50-5.90); RED CELL DISTRIBUTION WIDTH 14.6 % (11.5-14.5)
[2021-04-18 16:08] LABS: ANION GAP 2 mmol/L (8-16); CALCIUM, TOTAL 9.1 mg/dL (8.8-10.5); CARBON DIOXIDE 33 mmol/L (22-29); CHLORIDE 105 mmol/L (98-107); CREATININE 0.85 mg/dL (0.60-1.30); GLOMERULAR FILTR. RATE CALC > 60 mL/min (>60); GLUCOSE,RANDOM 100 mg/dL (70-110); POTASSIUM 4.3 mmol/L (3.5-5.1); SODIUM SERUM 140 mmol/L (136-145); UREA NITROGEN, BLOOD 17 mg/dL (7-18)
[2021-04-18 16:15] LABS: ALANINE AMINOTRANSFERASE 16 U/L (12-78); ALBUMIN 3.9 g/dL (3.4-5.0); ALKALINE PHOSPHATASE 78 U/L (46-116); ASPARTATE AMINOTRANSFERASE 14 U/L (15-37); BILIRUBIN,TOTAL 0.2 mg/dL (0.1-1.0); TOTAL PROTEIN, SERUM 8.7 g/dL (6.4-8.2)
== END 2021-04-18 16:52 | disposition home or self-care (01) ==
LOC: EMS 14:02
DX: R07.89 Other chest pain (principal); F25.9 Schizoaffective disorder, unspecified; F17.210 Nicotine dependence, cigarettes, uncomplicated; Z79.899 Other long term (current) drug therapy
CPT/HCPCS: 80053; 84484; 85025; 93005; 99284

== ENCOUNTER 2021-07-10 17:09 | Inpatient (IN) | payer MEDICAID, OTHER ==
[~2021-07-10] VITALS: Ht 172.7 cm; Wt 66.8 kg
[2021-07-10] MEDS ORDERED: ACETAMINOPHEN 325 MG TABLET PO ONE (18:00)
[2021-07-10 18:04] LABS: BASOPHILS % (AUTO) 0.3 % (0.0-2.0); EOSINOPHILS % (AUTO) 0 % (1.0-6.0); HEMATOCRIT 40.9 % (41-53); HEMOGLOBIN 13.7 g/dL (13.5-17.5); LYMPHOCYTES # (AUTO) 1.1 K/uL (1.0-4.8); LYMPHOCYTES % (AUTO) 9.4 % (22.0-44.0); MEAN CORPUSCULAR HEMOGLOBIN 29.9 pg (26.0-34.0); MEAN CORPUSCULAR HGB CONC 33.4 G/dL (31.0-37.0); MEAN CORPUSCULAR VOLUME 89 fL (80-100); MONOCYTES # (AUTO) 1.3 K/uL (0.1-1.0); MONOCYTES % (AUTO) 10.3 % (2.0-9.0); NEUTROPHILS # (AUTO) 9.8 K/uL (1.8-7.7); PLATELET COUNT (AUTO) 299 K/uL (150-450); RED BLOOD CELL COUNT(AUTO) 4.58 MIL/uL (4.50-5.90); RED CELL DISTRIBUTION WIDTH 13.8 % (11.5-14.5)
[2021-07-10 18:16] LABS: ANION GAP 7 mmol/L (8-16); CALCIUM, TOTAL 8.9 mg/dL (8.8-10.5); CARBON DIOXIDE 29 mmol/L (22-29); CHLORIDE 98 mmol/L (98-107); CREATININE 0.91 mg/dL (0.60-1.30); GLOMERULAR FILTR. RATE CALC > 60 mL/min (>60); GLUCOSE,RANDOM 100 mg/dL (70-110); SODIUM SERUM 134 mmol/L (136-145); UREA NITROGEN, BLOOD 15 mg/dL (7-18)
[2021-07-10 18:23] LABS: ALANINE AMINOTRANSFERASE 24 U/L (12-78); ALBUMIN 3.4 g/dL (3.4-5.0); ALKALINE PHOSPHATASE 69 U/L (46-116); ASPARTATE AMINOTRANSFERASE 25 U/L (15-37); BILIRUBIN,TOTAL 0.5 mg/dL (0.1-1.0); TOTAL PROTEIN, SERUM 8.3 g/dL (6.4-8.2)
[2021-07-10] MEDS ORDERED: HALOPERIDOL 5 MG TABLET PO PRN (20:15)
[2021-07-10] MEDS ORDERED: LORazepam 2 MG TABLET PO PRN (20:15)
[2021-07-10 20:32] LABS: COVID AG,FIA SOURCE NASOPHARYNGEAL
[2021-07-10 22:01] VITALS: BP 114/72
[2021-07-11 01:16] VITALS: BP 119/76
[2021-07-11] MEDS ORDERED: PNEUMOCOCCAL VACCINE POLYVALENT 0.5 ML VIAL [PPSV23] IM. ONE (02:45)
[2021-07-11] MEDS ORDERED: INFLUENZA VIRUS VACCINE QVS 2021-22 (6MO+)/PF 60 MCG/0.5 ML SYRINGE IM. ONE (03:00)
[2021-07-11] MEDS ORDERED: DOCUSATE SODIUM 100 MG CAPSULE PO PRN (07:00)
[2021-07-11] MEDS ORDERED: LOPERAMIDE HCL 2 MG CAPSULE PO PRN (07:00)
[2021-07-11] MEDS ORDERED: OMEPRAZOLE 20 MG CAPSULE PO PRN (07:00)
[2021-07-11] MEDS ORDERED: PETROLATUM,WHITE 28 GM JELLY TP PRN (07:00)
[2021-07-11] MEDS ORDERED: CloNIDine HCL 0.1 MG TABLET PO PRN (07:00)
[2021-07-11] MEDS ORDERED: ONDANSETRON HCL 4 MG TABLET PO PRN (07:00)
[2021-07-11] MEDS ORDERED: MAGNESIUM HYDROXIDE SUSPENSION 30 ML UDCUP PO PRN (07:00)
[2021-07-11] MEDS ORDERED: BENZOCAINE/MENTHOL LOZENGE PO PRN (07:00)
[2021-07-11] MEDS ORDERED: MAG HYDROX/AL HYDROX/SIMETH ES 30 ML SUSPENSION UDCUP PO PRN (07:00)
[2021-07-11] MEDS ORDERED: BACITRACIN 28 GM OINTMENT TP PRN (07:00)
[2021-07-11 08:17] VITALS: BP 114/66
[2021-07-11] MEDS: IBUPROFEN 600 MG TABLET PO PRN (08:53)
[2021-07-11 16:12] VITALS: BP 110/62
[2021-07-11] MEDS: TraMADol HCL 50 MG TABLET PO PRN (17:01)
[2021-07-11] MEDS: ALBUTEROL SULFATE HFA 90 MCG/PUFF 8 GM INHALER IH PRN (17:31)
[2021-07-12] VITALS: BP 126/75
[2021-07-12] MEDS: ZOLPIDEM TARTRATE 10 MG TABLET PO PRN (00:08)
[2021-07-12] MEDS: TraMADol HCL 50 MG TABLET PO PRN ×2 (08:31→16:32)
[2021-07-12 08:33] VITALS: BP 115/63
[2021-07-12] MEDS: ALBUTEROL SULFATE HFA 90 MCG/PUFF 8 GM INHALER IH PRN ×2 (08:34→16:06)
[2021-07-12 16:23] VITALS: BP 100/65
[2021-07-12] MEDS: OLANZapine 10 MG TABLET PO SCH (20:09)
[2021-07-13 05:50] VITALS: BP 140/64
[2021-07-13 07:07] LABS: CHOL/HDL RATIO 3.2 (4.2-7.3)
[2021-07-13 08:09] VITALS: BP 122/69
[2021-07-13] MEDS: TraMADol HCL 50 MG TABLET PO PRN (10:13)
[2021-07-13] MEDS: IBUPROFEN 600 MG TABLET PO PRN (12:37)
[2021-07-13 16:03] VITALS: BP 125/70
[2021-07-13] MEDS: ACETAMINOPHEN 325 MG TABLET PO PRN (16:05)
[2021-07-13] MEDS: OLANZapine 10 MG TABLET PO SCH (20:33)
[2021-07-13] MEDS ORDERED: TraZODone HCL 50 MG TABLET PO SCH (21:00)
[2021-07-13] MEDS: ZOLPIDEM TARTRATE 10 MG TABLET PO PRN (22:30)
[2021-07-14 04:28] VITALS: BP 123/71
[2021-07-14 08:42] VITALS: BP 120/55
[2021-07-14] MEDS: ACETAMINOPHEN 325 MG TABLET PO PRN (08:59)
[2021-07-14] MEDS ORDERED: TRAZ-252 PO (13:13)
[2021-07-14] MEDS ORDERED: OLAN10 PO (13:13)
== END 2021-07-14 13:20 | disposition home or self-care (01) | DRG 750 ==
LOC: EMS 17:13 → B2S 19:55
PROVIDERS: ADMIT Psychiatry & Neurology Psychiatry; ATTEND Psychiatry & Neurology Psychiatry
DX: F25.9 Schizoaffective disorder, unspecified (principal); R45.851 Suicidal ideations; I10 Essential (primary) hypertension; J44.9 Chronic obstructive pulmonary disease, unspecified; S76.311A Strain of muscle, fascia and tendon of the posterior muscle group at thigh level, right thigh, initial encounter; Z20.822 Contact with and (suspected) exposure to COVID-19; F17.210 Nicotine dependence, cigarettes, uncomplicated; G47.00 Insomnia, unspecified; F19.10 Other psychoactive substance abuse, uncomplicated; X58.XXXA Exposure to other specified factors, initial encounter; F32.A Depression, unspecified; K59.00 Constipation, unspecified; F41.9 Anxiety disorder, unspecified; G89.29 Other chronic pain; K21.9 Gastro-esophageal reflux disease without esophagitis; M54.9 Dorsalgia, unspecified; Z91.51 Personal history of suicidal behavior; Z28.21 Immunization not carried out because of patient refusal; Z79.899 Other long term (current) drug therapy; Y93.89 Activity, other specified; Y92.89 Other specified places as the place of occurrence of the external cause; Y99.8 Other external cause status
CPT/HCPCS: 73552; 80053; 80061; 85025; 99285; G0480; J3535

== ENCOUNTER 2021-08-07 14:37 | Inpatient (IN) | payer MEDICAID, OTHER ==
[~2021-08-07] VITALS: Ht 177.8 cm; Wt 66.9 kg
[~2021-08-07 14:37] MED LIST changes: -ARIP15TA27 PO; -FLUP5TAB15 PO; +OLAN10 PO; +TRAZ-252 PO; -TRAZ150T80 PO; -TRIH2TAB3 PO
[2021-08-07 15:27] LABS: BASOPHILS % (AUTO) 0.5 % (0.0-2.0); HEMATOCRIT 39.8 % (41-53); HEMOGLOBIN 12.9 g/dL (13.5-17.5); LYMPHOCYTES # (AUTO) 2.4 K/uL (1.0-4.8); LYMPHOCYTES % (AUTO) 20.4 % (22.0-44.0); MEAN CORPUSCULAR HEMOGLOBIN 28.8 pg (26.0-34.0); MEAN CORPUSCULAR HGB CONC 32.4 G/dL (31.0-37.0); MEAN CORPUSCULAR VOLUME 89 fL (80-100); MONOCYTES # (AUTO) 0.9 K/uL (0.1-1.0); MONOCYTES % (AUTO) 8.1 % (2.0-9.0); NEUTROPHILS # (AUTO) 8.2 K/uL (1.8-7.7); PLATELET COUNT (AUTO) 267 K/uL (150-450); RED BLOOD CELL COUNT(AUTO) 4.47 MIL/uL (4.50-5.90); RED CELL DISTRIBUTION WIDTH 13.9 % (11.5-14.5)
[2021-08-07 15:36] LABS: COVID AG,FIA SOURCE NASAL SWAB
[2021-08-07 15:40] LABS: ANION GAP 6 mmol/L (8-16); CALCIUM, TOTAL 8.9 mg/dL (8.8-10.5); CARBON DIOXIDE 30 mmol/L (22-29); CHLORIDE 100 mmol/L (98-107); CREATININE 0.67 mg/dL (0.60-1.30); GLOMERULAR FILTR. RATE CALC > 60 mL/min (>60); GLUCOSE,RANDOM 84 mg/dL (70-110); POTASSIUM 4.1 mmol/L (3.5-5.1); SODIUM SERUM 136 mmol/L (136-145); UREA NITROGEN, BLOOD 16 mg/dL (7-18)
[2021-08-07 15:45] LABS: ALANINE AMINOTRANSFERASE 14 U/L (12-78); ALBUMIN 3.2 g/dL (3.4-5.0); ALKALINE PHOSPHATASE 84 U/L (46-116); ASPARTATE AMINOTRANSFERASE 14 U/L (15-37); BILIRUBIN,TOTAL 0.2 mg/dL (0.1-1.0); TOTAL PROTEIN, SERUM 7.8 g/dL (6.4-8.2)
[2021-08-07 15:46] LABS: AMPHET/METH SCREEN,URINE NEGATIVE (NEGATIVE); BARBITURATE SCREEN, URINE NEGATIVE (NEGATIVE); BENZODIAZEPINES SCREEN,URINE NEGATIVE (NEGATIVE); CANNABINOID SCREEN,URINE NEGATIVE (NEGATIVE); COCAINE SCREEN,URINE NEGATIVE (NEGATIVE); METHADONE SCREEN, URINE NEGATIVE (NEGATIVE); OPIATE SCREEN,URINE NEGATIVE (NEGATIVE)
[2021-08-07 15:53] LABS: PHENCYCLIDINE SCREEN,URINE NEGATIVE (NEGATIVE)
[2021-08-07] MEDS: HALOPERIDOL 5 MG TABLET PO ONE ×2 (17:38→17:40)
[2021-08-07] MEDS: DiphenhydrAMINE HCL 50 MG CAPSULE PO ONE ×2 (17:38→17:40)
[2021-08-07] MEDS: LORazepam 2 MG TABLET PO ONE ×2 (17:38→17:40)
[2021-08-07] MEDS ORDERED: HALOPERIDOL 5 MG TABLET PO PRN (19:00)
[2021-08-07] MEDS ORDERED: ZOLPIDEM TARTRATE 10 MG TABLET PO PRN (19:00)
[2021-08-07 21:05] VITALS: BP 145/90
[2021-08-07] MEDS ORDERED: NICOTINE 14 MG/24 HOUR PATCH TD PRN (22:30)
[2021-08-08] MEDS: ALBUTEROL SULFATE HFA 90 MCG/PUFF 8 GM INHALER IH PRN ×2 (06:07→15:34)
[2021-08-08] MEDS ORDERED: NICOTINE 14 MG/24 HOUR PATCH TD PRN (10:45)
[2021-08-08] MEDS ORDERED: PETROLATUM,WHITE 28 GM JELLY TP PRN (10:45)
[2021-08-08] MEDS ORDERED: ONDANSETRON HCL 4 MG TABLET PO PRN (10:45)
[2021-08-08] MEDS ORDERED: DOCUSATE SODIUM 100 MG CAPSULE PO PRN (10:45)
[2021-08-08] MEDS ORDERED: MAG HYDROX/AL HYDROX/SIMETH ES 30 ML SUSPENSION UDCUP PO PRN (10:45)
[2021-08-08] MEDS ORDERED: ALBUTEROL SULFATE HFA 90 MCG/PUFF 8 GM INHALER IH PRN (10:45)
[2021-08-08] MEDS ORDERED: CloNIDine HCL 0.1 MG TABLET PO PRN (10:45)
[2021-08-08] MEDS ORDERED: LOPERAMIDE HCL 2 MG CAPSULE PO PRN (10:45)
[2021-08-08] MEDS ORDERED: ACETAMINOPHEN 325 MG TABLET PO PRN (10:45)
[2021-08-08] MEDS ORDERED: GuaiFENesin/D-METHORPHAN [SUGAR-FREE] 200-20MG/10 ML SYRUP UDCUP PO PRN (10:45)
[2021-08-08] MEDS ORDERED: MAGNESIUM HYDROXIDE SUSPENSION 30 ML UDCUP PO PRN (10:45)
[2021-08-08 10:52] VITALS: BP 134/76
[2021-08-08] MEDS: IBUPROFEN 400 MG TABLET PO PRN (10:52)
[2021-08-08] MEDS: TraMADol HCL 50 MG TABLET PO PRN (14:58)
[2021-08-08 16:00] VITALS: BP 152/95
[2021-08-08] MEDS: OLANZapine 10 MG TABLET PO SCH (20:15)
[2021-08-08] MEDS: TraZODone HCL 50 MG TABLET PO SCH (20:15)
[2021-08-08] MEDS: LORazepam 2 MG TABLET PO PRN (20:16)
[2021-08-09 08:56] VITALS: BP 172/79
[2021-08-09] MEDS: IBUPROFEN 400 MG TABLET PO PRN (09:17)
[2021-08-09 16:32] VITALS: BP 144/89
[2021-08-09] MEDS: TraMADol HCL 50 MG TABLET PO PRN (16:32)
[2021-08-09 16:33] VITALS: BP 144/89
[2021-08-09] MEDS: TraZODone HCL 50 MG TABLET PO SCH (20:06)
[2021-08-09] MEDS: OLANZapine 10 MG TABLET PO SCH (20:06)
[2021-08-09] MEDS: LORazepam 2 MG TABLET PO PRN (20:06)
[2021-08-10 01:40] VITALS: BP 135/80
[2021-08-10] MEDS: TraMADol HCL 50 MG TABLET PO PRN (01:48)
[2021-08-10] MEDS: LORazepam 2 MG TABLET PO PRN (08:53)
[2021-08-10] MEDS: IBUPROFEN 400 MG TABLET PO PRN (08:53)
[2021-08-10 09:26] VITALS: BP 152/93
[2021-08-10] MEDS ORDERED: OLAN10 PO (10:11)
[2021-08-10] MEDS ORDERED: TRAZ-252 PO (10:11)
== END 2021-08-10 10:35 | disposition home or self-care (01) | DRG 750 ==
LOC: EMS 14:43 → 3EI 20:52
PROVIDERS: ADMIT Psychiatry & Neurology Psychiatry; ATTEND Psychiatry & Neurology Child & Adolescent Psychiatry
DX: F20.0 Paranoid schizophrenia (principal); R45.851 Suicidal ideations; D70.9 Neutropenia, unspecified; I10 Essential (primary) hypertension; J44.9 Chronic obstructive pulmonary disease, unspecified; G89.29 Other chronic pain; F32.A Depression, unspecified; F17.200 Nicotine dependence, unspecified, uncomplicated; Z20.822 Contact with and (suspected) exposure to COVID-19; F15.99 Other stimulant use, unspecified with unspecified stimulant-induced disorder; K21.9 Gastro-esophageal reflux disease without esophagitis; M54.9 Dorsalgia, unspecified; D64.9 Anemia, unspecified; Z71.6 Tobacco abuse counseling; Z91.51 Personal history of suicidal behavior
CPT/HCPCS: 80053; 85025; 87081; 99285; G0480; J3535

== ENCOUNTER 2021-08-20 11:34 | Emergency (ER) | payer MEDICAID, OTHER ==
[~2021-08-20] VITALS: Ht 177.8 cm; Wt 77.3 kg
[2021-08-20] MEDS ORDERED: KETOROLAC TROMETHAMINE 10 MG TABLET PO ONE (12:45)
[2021-08-20] MEDS ORDERED: NAPR-1025 PO (13:30)
[2021-08-20] MEDS ORDERED: METH-659 PO (13:30)
[2021-08-20 14:16] VITALS: BP 141/79
== END 2021-08-20 14:23 | disposition home or self-care (01) ==
LOC: EMS 11:34
DX: S86.811A Strain of other muscle(s) and tendon(s) at lower leg level, right leg, initial encounter (principal); S86.812A Strain of other muscle(s) and tendon(s) at lower leg level, left leg, initial encounter; S80.01XA Contusion of right knee, initial encounter; W51.XXXA Accidental striking against or bumped into by another person, initial encounter; Y93.89 Activity, other specified; Y92.89 Other specified places as the place of occurrence of the external cause; Y99.8 Other external cause status
CPT/HCPCS: 99283

== ENCOUNTER 2021-08-31 00:20 | Emergency (ER) | payer OTHER ==
[~2021-08-31] VITALS: Ht 177.8 cm; Wt 56.4 kg
[~2021-08-31 00:20] MED LIST changes: +METH-659 PO; +NAPR-1025 PO
[2021-08-31] MEDS ORDERED: LIDOCAINE 5% TRANSDERMAL PATCH TD ONE (01:30)
[2021-08-31] MEDS ORDERED: KETOROLAC TROMETHAMINE 30 MG/ML VIAL IM ONE (01:30)
[2021-08-31] MEDS ORDERED: IBUP-2124 PO (01:58)
[2021-08-31] MEDS ORDERED: LIDO700A15 TP (01:58)
[2021-08-31 02:13] VITALS: BP 136/88
[2021-09-01] MEDS ORDERED: IBUP-2070 PO (04:34)
== END 2021-08-31 02:17 | disposition home or self-care (01) ==
LOC: EMS 00:20
DX: M79.605 Pain in left leg (principal); M54.50 Low back pain, unspecified; F20.9 Schizophrenia, unspecified; Z79.899 Other long term (current) drug therapy; Y04.0XXA Assault by unarmed brawl or fight, initial encounter; Y93.89 Activity, other specified; Y92.89 Other specified places as the place of occurrence of the external cause; Y99.8 Other external cause status
CPT/HCPCS: 96372; 99283; J1885

== ENCOUNTER 2021-09-01 04:07 | Emergency (ER) | payer OTHER ==
[~2021-09-01] VITALS: Ht 177.8 cm; Wt 77.3 kg
[~2021-09-01 04:07] MED LIST changes: +IBUP-2124 PO; +LIDO700A15 TP
[2021-09-01 04:24] VITALS: BP 155/83
[2021-09-01] MEDS: ACETAMINOPHEN 500 MG TABLET PO ONE (04:30)
[2021-09-01] MEDS ORDERED: IBUP-2070 PO (04:34)
[2021-09-01] MEDS: KETOROLAC TROMETHAMINE 30 MG/ML VIAL IM ONE (04:48)
== END 2021-09-01 05:05 | disposition home or self-care (01) ==
LOC: EMS 04:08
DX: G57.02 Lesion of sciatic nerve, left lower limb (principal); M54.50 Low back pain, unspecified; G89.29 Other chronic pain; F20.9 Schizophrenia, unspecified; F17.210 Nicotine dependence, cigarettes, uncomplicated; F15.90 Other stimulant use, unspecified, uncomplicated; Z98.890 Other specified postprocedural states
CPT/HCPCS: 96372; 99283; J1885; Z7502; Z7610

== ENCOUNTER 2021-09-25 12:50 | Inpatient (IN) | payer MEDICAID, OTHER ==
[~2021-09-25] VITALS: Ht 177.8 cm; Wt 65.8 kg
[~2021-09-25 12:50] MED LIST changes: +IBUP-2070 PO
[2021-09-25 15:14] LABS: BASOPHILS % (AUTO) 0.5 % (0.0-2.0); EOSINOPHILS % (AUTO) 1.1 % (1.0-6.0); HEMATOCRIT 42.7 % (41-53); HEMOGLOBIN 14.4 g/dL (13.5-17.5); LYMPHOCYTES % (AUTO) 22.2 % (22.0-44.0); MEAN CORPUSCULAR HEMOGLOBIN 29.8 pg (26.0-34.0); MEAN CORPUSCULAR HGB CONC 33.8 G/dL (31.0-37.0); MEAN CORPUSCULAR VOLUME 88 fL (80-100); MONOCYTES # (AUTO) 0.9 K/uL (0.1-1.0); MONOCYTES % (AUTO) 10.2 % (2.0-9.0); PLATELET COUNT (AUTO) 265 K/uL (150-450); RED BLOOD CELL COUNT(AUTO) 4.85 MIL/uL (4.50-5.90); RED CELL DISTRIBUTION WIDTH 15.3 % (11.5-14.5)
[2021-09-25] MEDS ORDERED: DiphenhydrAMINE HCL 50 MG/ML VIAL IM ONE (15:15)
[2021-09-25] MEDS ORDERED: HALOPERIDOL LACTATE 5 MG/ML VIAL IM ONE (15:15)
[2021-09-25] MEDS ORDERED: LORazepam 2 MG/ML VIAL IM ONE (15:15)
[2021-09-25 15:28] LABS: ANION GAP 8 mmol/L (8-16); CALCIUM, TOTAL 8.7 mg/dL (8.8-10.5); CARBON DIOXIDE 32 mmol/L (22-29); CHLORIDE 102 mmol/L (98-107); CREATININE 0.77 mg/dL (0.60-1.30); GLOMERULAR FILTR. RATE CALC > 60 mL/min (>60); GLUCOSE,RANDOM 78 mg/dL (70-110); POTASSIUM 3.9 mmol/L (3.5-5.1); SODIUM SERUM 142 mmol/L (136-145); UREA NITROGEN, BLOOD 14 mg/dL (7-18)
[2021-09-25 15:33] LABS: ALANINE AMINOTRANSFERASE 17 U/L (12-78); ALBUMIN 3.7 g/dL (3.4-5.0); ALKALINE PHOSPHATASE 91 U/L (46-116); ASPARTATE AMINOTRANSFERASE 11 U/L (15-37); BILIRUBIN,TOTAL 0.2 mg/dL (0.1-1.0); TOTAL PROTEIN, SERUM 7.9 g/dL (6.4-8.2)
[2021-09-25 15:34] LABS: AMPHET/METH SCREEN,URINE POSITIVE (NEGATIVE); BARBITURATE SCREEN, URINE NEGATIVE (NEGATIVE); BENZODIAZEPINES SCREEN,URINE NEGATIVE (NEGATIVE); CANNABINOID SCREEN,URINE NEGATIVE (NEGATIVE); COCAINE SCREEN,URINE NEGATIVE (NEGATIVE); METHADONE SCREEN, URINE NEGATIVE (NEGATIVE); OPIATE SCREEN,URINE NEGATIVE (NEGATIVE)
[2021-09-25 15:35] LABS: PHENCYCLIDINE SCREEN,URINE NEGATIVE (NEGATIVE)
[2021-09-25 15:56] LABS: COVID AG,FIA SOURCE NASOPHARYNGEAL
[2021-09-25 18:10] VITALS: BP 143/75
[2021-09-25] MEDS: HALOPERIDOL 5 MG TABLET PO PRN (22:54)
[2021-09-25] MEDS: LORazepam 2 MG TABLET PO PRN (22:54)
[2021-09-26 01:20] VITALS: BP 139/76
[2021-09-26 04:32] VITALS: BP 152/74
[2021-09-26] MEDS: HALOPERIDOL 5 MG TABLET PO PRN ×2 (04:33→08:34)
[2021-09-26] MEDS: LORazepam 2 MG TABLET PO PRN (04:33)
[2021-09-26 08:15] VITALS: BP 142/79
[2021-09-26] MEDS: BACITRACIN 28 GM OINTMENT TP SCH ×3 (08:34→17:00)
[2021-09-26] MEDS: TraMADol HCL 50 MG TABLET PO PRN (08:35)
[2021-09-26] MEDS ORDERED: PETROLATUM,WHITE 28 GM JELLY TP PRN (10:45)
[2021-09-26] MEDS ORDERED: MAGNESIUM HYDROXIDE SUSPENSION 30 ML UDCUP PO PRN (10:45)
[2021-09-26] MEDS ORDERED: NICOTINE 14 MG/24 HOUR PATCH TD PRN (10:45)
[2021-09-26] MEDS ORDERED: DOCUSATE SODIUM 100 MG CAPSULE PO PRN (10:45)
[2021-09-26] MEDS ORDERED: ALBUTEROL SULFATE HFA 90 MCG/PUFF 8 GM INHALER IH PRN (10:45)
[2021-09-26] MEDS ORDERED: ONDANSETRON HCL 4 MG TABLET PO PRN (10:45)
[2021-09-26] MEDS ORDERED: CloNIDine HCL 0.1 MG TABLET PO PRN (10:45)
[2021-09-26] MEDS ORDERED: LOPERAMIDE HCL 2 MG CAPSULE PO PRN (10:45)
[2021-09-26] MEDS ORDERED: ACETAMINOPHEN 325 MG TABLET PO PRN (10:45)
[2021-09-26] MEDS ORDERED: GuaiFENesin/D-METHORPHAN [SUGAR-FREE] 200-20MG/10 ML SYRUP UDCUP PO PRN (10:45)
[2021-09-26] MEDS ORDERED: MAG HYDROX/AL HYDROX/SIMETH ES 30 ML SUSPENSION UDCUP PO PRN (10:45)
[2021-09-26] MEDS: IBUPROFEN 400 MG TABLET PO PRN (15:19)
[2021-09-26] MEDS: ARIPiprazole 15 MG TABLET PO SCH (15:19)
[2021-09-26 16:09] VITALS: BP 121/79
[2021-09-26] MEDS: METHOCARBAMOL 500 MG TABLET PO SCH (17:03)
[2021-09-27 00:10] VITALS: BP 145/89
[2021-09-27] MEDS: ZOLPIDEM TARTRATE 10 MG TABLET PO PRN (00:19)
[2021-09-27 06:00] VITALS: BP 145/99
[2021-09-27] MEDS: TraMADol HCL 50 MG TABLET PO PRN (06:12)
[2021-09-27 08:09] VITALS: BP 136/87
[2021-09-27] MEDS: METHOCARBAMOL 500 MG TABLET PO SCH ×2 (08:14→16:40)
[2021-09-27] MEDS: ARIPiprazole 15 MG TABLET PO SCH (08:14)
[2021-09-27] MEDS: BACITRACIN 28 GM OINTMENT TP SCH ×2 (08:19→16:40)
[2021-09-27] MEDS: IBUPROFEN 400 MG TABLET PO PRN ×2 (09:57→17:59)
[2021-09-27] MEDS: LORazepam 2 MG TABLET PO PRN (13:25)
[2021-09-27] MEDS: HALOPERIDOL 5 MG TABLET PO PRN (13:25)
[2021-09-27 16:13] VITALS: BP 132/73
[2021-09-28 00:03] VITALS: BP 140/89
[2021-09-28] MEDS: ZOLPIDEM TARTRATE 10 MG TABLET PO PRN (00:08)
[2021-09-28] MEDS: TraMADol HCL 50 MG TABLET PO PRN (00:09)
[2021-09-28] MEDS: LORazepam 2 MG TABLET PO PRN (03:27)
[2021-09-28] MEDS: METHOCARBAMOL 500 MG TABLET PO SCH (08:43)
[2021-09-28 08:45] VITALS: BP 140/78
[2021-09-28] MEDS: BACITRACIN 28 GM OINTMENT TP SCH (08:46)
[2021-09-28] MEDS ORDERED: ARIPiprazole 10 MG TABLET PO SCH (09:00)
[2021-09-28] MEDS ORDERED: ARIP10TA38 PO (10:56)
== END 2021-09-28 13:30 | disposition home or self-care (01) | DRG 750 ==
LOC: EMS 12:50 → B2S 14:59
PROVIDERS: ADMIT Psychiatry & Neurology Child & Adolescent Psychiatry; ATTEND Psychiatry & Neurology Child & Adolescent Psychiatry
DX: F25.1 Schizoaffective disorder, depressive type (principal); R45.851 Suicidal ideations; Z59.00 Homelessness unspecified; G89.29 Other chronic pain; J44.9 Chronic obstructive pulmonary disease, unspecified; F15.10 Other stimulant abuse, uncomplicated; Z20.822 Contact with and (suspected) exposure to COVID-19; F41.9 Anxiety disorder, unspecified; M54.9 Dorsalgia, unspecified; F17.210 Nicotine dependence, cigarettes, uncomplicated; Z71.51 Drug abuse counseling and surveillance of drug abuser; Z79.899 Other long term (current) drug therapy
CPT/HCPCS: 80053; 85025; 87081; 99285; G0480; J1200; J1630; J2060

== ENCOUNTER 2021-11-01 17:18 | Inpatient (IN) | payer MEDICAID ==
[~2021-11-01] VITALS: Ht 177.8 cm; Wt 64.6 kg
[~2021-11-01 17:18] MED LIST changes: +ARIP10TA38 PO; -IBUP-2070 PO; -IBUP-2124 PO; -LIDO700A15 TP; -NAPR-1025 PO; -OLAN10 PO; -TRAZ-252 PO
[2021-11-01] MEDS ORDERED: MIRT-89 PO (18:01)
[2021-11-01] MEDS ORDERED: ARIP10TA38 PO (18:01)
[2021-11-01] MEDS ORDERED: TRIH2ELI2 PO (18:01)
[2021-11-01] MEDS ORDERED: GABA-1181 PO (18:03)
[2021-11-01 18:19] LABS: AMPHET/METH SCREEN,URINE POSITIVE (NEGATIVE); BARBITURATE SCREEN, URINE NEGATIVE (NEGATIVE); BENZODIAZEPINES SCREEN,URINE NEGATIVE (NEGATIVE); CANNABINOID SCREEN,URINE NEGATIVE (NEGATIVE); COCAINE SCREEN,URINE NEGATIVE (NEGATIVE); METHADONE SCREEN, URINE NEGATIVE (NEGATIVE); OPIATE SCREEN,URINE NEGATIVE (NEGATIVE); PHENCYCLIDINE SCREEN,URINE NEGATIVE (NEGATIVE)
[2021-11-01 18:20] LABS: COVID AG,FIA SOURCE NASOPHARYNGEAL
[2021-11-01 18:21] LABS: BASOPHILS % (AUTO) 0.6 % (0.0-2.0); EOSINOPHILS % (AUTO) 1.2 % (1.0-6.0); HEMATOCRIT 40.2 % (41-53); HEMOGLOBIN 13.4 g/dL (13.5-17.5); LYMPHOCYTES # (AUTO) 2.5 K/uL (1.0-4.8); LYMPHOCYTES % (AUTO) 20.4 % (22.0-44.0); MEAN CORPUSCULAR HEMOGLOBIN 29.4 pg (26.0-34.0); MEAN CORPUSCULAR HGB CONC 33.4 G/dL (31.0-37.0); MEAN CORPUSCULAR VOLUME 88 fL (80-100); MONOCYTES # (AUTO) 1.1 K/uL (0.1-1.0); MONOCYTES % (AUTO) 9.2 % (2.0-9.0); NEUTROPHILS # (AUTO) 8.4 K/uL (1.8-7.7); NEUTROPHILS % (AUTO) 68.6 % (40.0-70.0); PLATELET COUNT (AUTO) 287 K/uL (150-450); RED BLOOD CELL COUNT(AUTO) 4.57 MIL/uL (4.50-5.90); RED CELL DISTRIBUTION WIDTH 15.7 % (11.5-14.5)
[2021-11-01 18:31] LABS: ANION GAP 6 mmol/L (8-16); CALCIUM, TOTAL 8.8 mg/dL (8.8-10.5); CARBON DIOXIDE 28 mmol/L (22-29); CHLORIDE 102 mmol/L (98-107); CREATININE 0.83 mg/dL (0.60-1.30); GLOMERULAR FILTR. RATE CALC > 60 mL/min (>60); GLUCOSE,RANDOM 155 mg/dL (70-110); POTASSIUM 4.1 mmol/L (3.5-5.1); SODIUM SERUM 136 mmol/L (136-145); UREA NITROGEN, BLOOD 26 mg/dL (7-18)
[2021-11-01 18:37] LABS: ALANINE AMINOTRANSFERASE 15 U/L (12-78); ALBUMIN 3.4 g/dL (3.4-5.0); ALKALINE PHOSPHATASE 79 U/L (46-116); ASPARTATE AMINOTRANSFERASE 14 U/L (15-37); BILIRUBIN,TOTAL 0.3 mg/dL (0.1-1.0); TOTAL PROTEIN, SERUM 7.2 g/dL (6.4-8.2)
[2021-11-01] MEDS ORDERED: ALBU8HFA IH (18:58)
[2021-11-01] MEDS ORDERED: TRIH2TAB3 PO (18:58)
[2021-11-01] MEDS ORDERED: FAMO20TA8 PO (18:58)
[2021-11-01] MEDS ORDERED: FLUT1BLS3 IH (18:58)
[2021-11-01] MEDS ORDERED: FLUP10TA8 PO (18:58)
[2021-11-01] MEDS ORDERED: ZOLPIDEM TARTRATE 10 MG TABLET PO PRN (19:00)
[2021-11-01 21:10] LABS: APPEARANCE,URINE TURBID (CLEAR); BILIRUBIN,URINE NEGATIVE (NEGATIVE); GLUCOSE, URINE (UA) NEGATIVE (NEGATIVE); KETONES,URINE NEGATIVE (NEGATIVE); LEUKOCYTE ESTERASE ,URINE NEGATIVE (NEGATIVE); NITRATE,URINE NEGATIVE (NEGATIVE); OCCULT BLOOD,URINE NEGATIVE (NEGATIVE); PH,URINE 5.5 (5.0-8.0); PROTEIN,URINE TRACE mg/dL (NEGATIVE); UROBILINOGEN,URINE <=1.0 mg/dL (<=1.0)
[2021-11-02] MEDS: LORazepam 2 MG TABLET PO PRN ×3 (02:10→13:37)
[2021-11-02] MEDS: HALOPERIDOL 5 MG TABLET PO PRN ×3 (02:10→13:37)
[2021-11-02 03:12] VITALS: BP 128/76
[2021-11-02 08:25] VITALS: BP 130/70
[2021-11-02] MEDS: ARIPiprazole 10 MG TABLET PO SCH (13:36)
[2021-11-02] MEDS ORDERED: LOPERAMIDE HCL 2 MG CAPSULE PO PRN (16:00)
[2021-11-02] MEDS ORDERED: CloNIDine HCL 0.1 MG TABLET PO PRN (16:00)
[2021-11-02] MEDS ORDERED: MAG HYDROX/AL HYDROX/SIMETH ES 30 ML SUSPENSION UDCUP PO PRN (16:00)
[2021-11-02] MEDS ORDERED: PETROLATUM,WHITE 28 GM JELLY TP PRN (16:00)
[2021-11-02] MEDS ORDERED: ONDANSETRON HCL 4 MG TABLET PO PRN (16:00)
[2021-11-02] MEDS ORDERED: MAGNESIUM HYDROXIDE SUSPENSION 30 ML UDCUP PO PRN (16:00)
[2021-11-02] MEDS ORDERED: GuaiFENesin/D-METHORPHAN [SUGAR-FREE] 200-20MG/10 ML SYRUP UDCUP PO PRN (16:00)
[2021-11-02] MEDS ORDERED: ALBUTEROL SULFATE HFA 90 MCG/PUFF 8 GM INHALER IH PRN (16:00)
[2021-11-02] MEDS ORDERED: DOCUSATE SODIUM 100 MG CAPSULE PO PRN (16:00)
[2021-11-02] MEDS ORDERED: ACETAMINOPHEN 325 MG TABLET PO PRN (16:00)
[2021-11-02 16:39] VITALS: BP 128/73
[2021-11-02] MEDS: GABAPENTIN 300 MG CAPSULE PO SCH (16:46)
[2021-11-02] MEDS: TRIHEXYPHENIDYL HCL 2 MG TABLET PO SCH (16:46)
[2021-11-02] MEDS: MIRTAZAPINE 15 MG TABLET PO SCH (20:37)
[2021-11-03] MEDS: IBUPROFEN 400 MG TABLET PO PRN (03:22)
[2021-11-03] MEDS: LORazepam 2 MG TABLET PO PRN (08:15)
[2021-11-03] MEDS: HALOPERIDOL 5 MG TABLET PO PRN (08:15)
[2021-11-03] MEDS: TRIHEXYPHENIDYL HCL 2 MG TABLET PO SCH ×2 (08:26→16:54)
[2021-11-03] MEDS: GABAPENTIN 300 MG CAPSULE PO SCH ×3 (08:26→16:54)
[2021-11-03] MEDS: ARIPiprazole 10 MG TABLET PO SCH (08:26)
[2021-11-03 09:09] VITALS: BP 132/95
[2021-11-03 16:15] VITALS: BP 115/74
[2021-11-03] MEDS: MIRTAZAPINE 15 MG TABLET PO SCH (20:48)
[2021-11-04 05:57] VITALS: BP 124/76
[2021-11-04] MEDS: IBUPROFEN 400 MG TABLET PO PRN (06:39)
[2021-11-04] MEDS: ARIPiprazole 10 MG TABLET PO SCH (08:08)
[2021-11-04] MEDS: TRIHEXYPHENIDYL HCL 2 MG TABLET PO SCH ×2 (08:08→16:19)
[2021-11-04] MEDS: GABAPENTIN 300 MG CAPSULE PO SCH ×3 (08:08→16:19)
[2021-11-04 08:19] VITALS: BP 147/90
[2021-11-04] MEDS: LORazepam 2 MG TABLET PO PRN ×2 (13:10→17:14)
[2021-11-04] MEDS: HALOPERIDOL 5 MG TABLET PO PRN ×2 (13:10→17:14)
[2021-11-04 16:16] VITALS: BP 108/67
[2021-11-04] MEDS: MIRTAZAPINE 15 MG TABLET PO SCH (20:21)
[2021-11-05 00:59] VITALS: BP 123/71
[2021-11-05 05:55] VITALS: BP 140/87
[2021-11-05] MEDS: IBUPROFEN 400 MG TABLET PO PRN ×2 (05:57→16:55)
[2021-11-05] MEDS: TRIHEXYPHENIDYL HCL 2 MG TABLET PO SCH ×2 (08:29→16:11)
[2021-11-05] MEDS: ARIPiprazole 10 MG TABLET PO SCH (08:29)
[2021-11-05] MEDS: GABAPENTIN 300 MG CAPSULE PO SCH ×3 (08:29→16:11)
[2021-11-05 08:48] VITALS: BP 136/71
[2021-11-05] MEDS: LORazepam 2 MG TABLET PO PRN (09:39)
[2021-11-05] MEDS: HALOPERIDOL 5 MG TABLET PO PRN (09:39)
[2021-11-05] MEDS: NICOTINE 14 MG/24 HOUR PATCH TD PRN (10:35)
[2021-11-05 16:11] VITALS: BP 104/83
[2021-11-05 16:50] VITALS: BP 111/75
[2021-11-05] MEDS: MIRTAZAPINE 15 MG TABLET PO SCH (20:10)
[2021-11-06 00:22] VITALS: BP 121/73
[2021-11-06] MEDS: LORazepam 2 MG TABLET PO PRN ×2 (04:24→17:34)
[2021-11-06] MEDS: IBUPROFEN 400 MG TABLET PO PRN ×2 (06:54→17:34)
[2021-11-06] MEDS: TRIHEXYPHENIDYL HCL 2 MG TABLET PO SCH ×2 (08:20→16:48)
[2021-11-06] MEDS: GABAPENTIN 300 MG CAPSULE PO SCH ×3 (08:20→16:48)
[2021-11-06] MEDS: ARIPiprazole 10 MG TABLET PO SCH (08:20)
[2021-11-06 08:37] VITALS: BP 130/77
[2021-11-06] MEDS: HALOPERIDOL 5 MG TABLET PO PRN (11:00)
[2021-11-06 16:13] VITALS: BP 135/81
[2021-11-06] MEDS: MIRTAZAPINE 15 MG TABLET PO SCH (20:13)
[2021-11-07] MEDS: LORazepam 2 MG TABLET PO PRN ×2 (04:13→12:28)
[2021-11-07 04:23] VITALS: BP 126/85
[2021-11-07] MEDS: IBUPROFEN 400 MG TABLET PO PRN (06:12)
[2021-11-07 06:40] VITALS: BP 121/83
[2021-11-07] MEDS: ARIPiprazole 10 MG TABLET PO SCH (08:19)
[2021-11-07] MEDS: GABAPENTIN 300 MG CAPSULE PO SCH ×3 (08:19→16:51)
[2021-11-07] MEDS: TRIHEXYPHENIDYL HCL 2 MG TABLET PO SCH ×2 (08:19→16:51)
[2021-11-07 08:27] VITALS: BP 110/69
[2021-11-07 16:14] VITALS: BP 121/77
[2021-11-07] MEDS: MIRTAZAPINE 15 MG TABLET PO SCH (20:07)
[2021-11-08] MEDS: LORazepam 2 MG TABLET PO PRN ×2 (06:22→12:31)
[2021-11-08] MEDS: IBUPROFEN 400 MG TABLET PO PRN (06:22)
[2021-11-08] MEDS: HALOPERIDOL 5 MG TABLET PO PRN (06:22)
[2021-11-08 07:15] VITALS: BP 118/79
[2021-11-08 08:32] VITALS: BP 143/83
[2021-11-08] MEDS: ARIPiprazole 10 MG TABLET PO SCH (08:41)
[2021-11-08] MEDS: GABAPENTIN 300 MG CAPSULE PO SCH ×3 (08:41→16:02)
[2021-11-08] MEDS: TRIHEXYPHENIDYL HCL 2 MG TABLET PO SCH ×2 (08:41→16:02)
[2021-11-08] MEDS: NICOTINE 14 MG/24 HOUR PATCH TD PRN (15:30)
[2021-11-08 16:21] VITALS: BP 120/69
[2021-11-08] MEDS: MIRTAZAPINE 15 MG TABLET PO SCH (20:12)
[2021-11-09 07:17] VITALS: BP 128/72
[2021-11-09] MEDS: HALOPERIDOL 5 MG TABLET PO PRN (07:24)
[2021-11-09] MEDS: IBUPROFEN 400 MG TABLET PO PRN (07:24)
[2021-11-09] MEDS: LORazepam 2 MG TABLET PO PRN ×2 (07:24→20:30)
[2021-11-09] MEDS: ARIPiprazole 10 MG TABLET PO SCH (08:14)
[2021-11-09] MEDS: TRIHEXYPHENIDYL HCL 2 MG TABLET PO SCH ×2 (08:14→16:14)
[2021-11-09] MEDS: GABAPENTIN 300 MG CAPSULE PO SCH ×3 (08:14→16:14)
[2021-11-09 08:40] VITALS: BP 106/62
[2021-11-09] MEDS: CYCLOBENZAPRINE HCL 10 MG TABLET PO PRN (09:04)
[2021-11-09 16:29] VITALS: BP 103/65
[2021-11-09] MEDS: MIRTAZAPINE 15 MG TABLET PO SCH (20:27)
[2021-11-10] VITALS: BP 130/70
[2021-11-10] MEDS: IBUPROFEN 400 MG TABLET PO PRN (00:55)
[2021-11-10 08:18] VITALS: BP 112/69
[2021-11-10] MEDS: ARIPiprazole 10 MG TABLET PO SCH (08:18)
[2021-11-10] MEDS: CYCLOBENZAPRINE HCL 10 MG TABLET PO PRN (08:19)
[2021-11-10] MEDS: TRIHEXYPHENIDYL HCL 2 MG TABLET PO SCH (08:19)
[2021-11-10] MEDS: GABAPENTIN 300 MG CAPSULE PO SCH ×2 (08:20→12:47)
[2021-11-10 08:46] LABS: GLUCOMETER DEV NAME(LOC) POC.BV
[2021-11-10] MEDS ORDERED: MULTIVITAMINS WITH MINERALS, THERAPEUTIC TABLET PO SCH (09:00)
[2021-11-10] MEDS ORDERED: GABA-1181 PO (12:12)
[2021-11-10] MEDS ORDERED: ARIP10TA38 PO (12:12)
[2021-11-10] MEDS ORDERED: TRIH2TAB3 PO (12:12)
[2021-11-10] MEDS ORDERED: MIRT-89 PO (12:12)
== END 2021-11-10 13:15 | disposition home or self-care (01) | DRG 750 ==
LOC: EMS 17:43 → B2S 11-02 01:06
PROVIDERS: ADMIT Psychiatry & Neurology Child & Adolescent Psychiatry; ATTEND Psychiatry & Neurology Child & Adolescent Psychiatry
DX: F25.9 Schizoaffective disorder, unspecified (principal); E46 Unspecified protein-calorie malnutrition; R45.851 Suicidal ideations; Z59.00 Homelessness unspecified; Z91.14 Patient's other noncompliance with medication regimen; G89.29 Other chronic pain; M54.9 Dorsalgia, unspecified; F41.9 Anxiety disorder, unspecified; R45.1 Restlessness and agitation; F10.10 Alcohol abuse, uncomplicated; F17.200 Nicotine dependence, unspecified, uncomplicated; K21.9 Gastro-esophageal reflux disease without esophagitis; F15.10 Other stimulant abuse, uncomplicated; F32.A Depression, unspecified; Z20.822 Contact with and (suspected) exposure to COVID-19; R73.9 Hyperglycemia, unspecified; J44.9 Chronic obstructive pulmonary disease, unspecified; D72.829 Elevated white blood cell count, unspecified; Z68.20 Body mass index [BMI] 20.0-20.9, adult
CPT/HCPCS: 80053; 81003; 85025; 99285; G0480